=== PATIENT | female | born 1955 | race Caucasian/White ===

== ENCOUNTER → 2016-11-27 | Outpatient (CLI) | payer BC ==
--- NOTE | 2016-11-27 08:42 | US ---
EXAMINATION TYPE: US thyroid st tissue head/neck DATE OF EXAM: 11/27/2016 8:18 AM COMPARISON: NONE CLINICAL HISTORY: E11.65 Type II Diabetes. Hyperthyroidism, pt had neck radiated 2 years ago but no c ancer GLAND SIZE: Right Lobe: 4.1 x 1.4 x 1.0 cm Overall Parenchyma: heterogenous Left Lobe: 4.0 x 1.7 x 1.6 cm Overall Parenchyma: heterogeneous Isthmus Thickness: 0.5 cm NODULES RIGHT: # of nodules measured on right: 2 1. 1.2 X 1.0 x 0.8 cm isoechoic solid nodule at the lower pole with well-defined margins; . This n odule is wider than tall and shows intranodular vascularity. Prior size: no prior 2. 0.9 X 0.6 x 0.6 cm echogenic solid nodule at the mid pole with well-defined margins; . This nodu le is wider than tall and shows intranodular vascularity. Prior size: no prior LEFT: # of nodules measured on left: 2 1. 2.3 X 1.6 x 2.0 cm mixed nodule at the lower/mid pole with well-defined margins; . This nodule is wider than tall and shows intranodular vascularity. Prior size: no prior 2. 0.8 X 0.4 x 0.6 cm mixed nodule at the upper pole with well-defined margins; . This nodule is wi flori than tall and shows intranodular vascularity. Prior size: no prior ISTHMUS: # of nodules measured in the isthmus: 0 Bilateral neck scanned, no evidence of lymphadenopathy. Thyroid gland is normal in size, there are scattered nodules identified bilaterally. Most concerning is a 2.3 cm mixed cystic and solid nodule that is wider greater than tall with hyperechoic hypervascu lar solid component along the anterior superior aspect in the lower pole left thyroid lobe. IMPRESSION: Thyroid gland is normal in size and heterogeneous in appearance with scattered nodules including a do minant 2.3 cm mixed nodule mid to lower pole level left thyroid lobe.
[2016-11-27 09:10] LABS: ALT 43 U/L (9-52); AST 24 U/L (14-36); Alkaline Phosphatase 130 U/L (38-126); Anion Gap 10 mmol/L; Blood Urea Nitrogen 18 mg/dL (7-17); Calcium 9.2 mg/dL (8.4-10.2); Carbon Dioxide 28 mmol/L (22-30); Chloride 99 mmol/L (98-107); Cholesterol 222 mg/dL (<200); Glucose 359 mg/dL (74-99); HDL Cholesterol 44 mg/dL (40-60); Non-African American GFR(MDRD) >60 (>60 ml/min/1.73 sqM); Potassium 4.6 mmol/L (3.5-5.1); Sodium 137 mmol/L (137-145); Total Bilirubin 0.6 mg/dL (0.2-1.3); Total Protein 7.2 g/dL (6.3-8.2); Triglycerides 284 mg/dL (<150)
== END | disposition home or self-care (01) ==
LOC: RADUSWWP 07:59
PROVIDERS: ATTEND Internal Medicine Endocrinology, Diabetes & Metabolism
DX: E04.2 Nontoxic multinodular goiter (principal); E11.65 Type 2 diabetes mellitus with hyperglycemia; E89.0 Postprocedural hypothyroidism
CPT/HCPCS: 76536; 80053; 80061; 82043; 84443

== ENCOUNTER 2018-02-19 14:06 | Observation (INO) | payer BC ==
[2018-02-19] MEDS ORDERED: ASPIRIN 81 MG PO STA (14:35)
[2018-02-19] MEDS ORDERED: NITROGLYCERIN SL TABS 0.4 MG TAB SUBLINGUAL STA ×3 (14:35)
--- NOTE | 2018-02-19 14:39 | ED ---
General Adult HPI - General Chief complaint: Chest Pain Stated complaint: chest pain Time Seen by Provider: 02/19/18 14:25 Source: patient, RN notes reviewed Mode of arrival: ambulatory Limitations: no limitations - History of Present Illness Initial comments: Patient is a pleasant 62-year-old female presenting to the emergency Department with chest discomfort. Symptoms have been present for the past 2 days. Symptoms have been more persistent. Discomfort feels like pressure or burning without radiation. There is some associated dyspnea. Patient has been fatigued. Patient has been nauseated with some dry heaves. No diaphoresis. Discomfort is not necessarily exertional. Patient does have a history of similar symptoms previously associated with thyroid problems. Discomfort is currently 01/13. - Related Data Home Medications Medication Instructions Recorded Confirmed Citalopram Hydrobromide 20 mg PO QAM 03/12/15 02/19/18 [Citalopram HBr] Liraglutide [Victoza 3-Armando] 1.8 mg SQ QAM 03/12/15 02/19/18 Simvastatin 40 mg PO HS 03/12/15 02/19/18 Insulin Detemir [Levemir Flextouch] 50 units SQ QAM 05/23/16 02/19/18 Insulin Lispro [humaLOG Kwikpen] See Protocol SQ ACHS PRN 05/23/16 02/19/18 Levothyroxine Sodium [Synthroid] 125 mcg PO DAILY 05/23/16 02/19/18 Montelukast [Singulair] 10 mg PO HS 08/01/16 02/19/18 metFORMIN HCL [Glucophage] 1,000 mg PO BID 08/01/16 02/19/18 Levofloxacin [Levaquin] 500 mg PO DAILY 02/19/18 02/19/18 Trimethoprim [Trimpex] 100 mg PO HS 02/19/18 02/19/18 Allergies Allergy/AdvReac Type Severity Reaction Status Date / Time No Known Allergies Allergy Verified 02/19/18 14:51 Review of Systems ROS Statement: Those systems with pertinent positive or pertinent negative responses have been documented in the HPI. ROS Other: All systems not noted in ROS Statement are negative. Constitutional: Denies: fever Eyes: Denies: eye pain ENT: Denies: ear pain Respiratory: Reports: dyspnea. Denies: cough Cardiovascular: Reports: chest pain Endocrine: Reports: fatigue Gastrointestinal: Reports: nausea. Denies: abdominal pain Genitourinary: Denies: dysuria Musculoskeletal: Denies: back pain Skin: Denies: rash Neurological: Denies: weakness Past Medical History Past Medical History: Diabetes Mellitus, Hyperlipidemia, Thyroid Disorder Additional Past Medical History / Comment(s): SEASONAL ALLERGIES, LOW THYROID., HX OF CELLULITIS LEFT CALF. mitral valve prolapse History of Any Multi-Drug Resistant Organisms: MRSA Date of last positivie culture/infection: 08/06/2004 MDRO Source:: LEFT CALF Past Surgical History: Hysterectomy, Joint Replacement, Tonsillectomy Additional Past Surgical History / Comment(s): 2 EYE LID SURGERYS, RIGHT KNEE REPLACEMENT, MARIANA FROZEN SHOULDER MANIPULATION. Past Anesthesia/Blood Transfusion Reactions: No Reported Reaction Past Psychological History: Anxiety, Depression Smoking Status: Never smoker Past Alcohol Use History: Rare Past Drug Use History: None Reported - Past Family History Mother Family Medical History: Cancer Additional Family Medical History / Comment(s): LUNG CANCER General Exam Limitations: no limitations General appearance: alert, in no apparent distress Head exam: Present: atraumatic Eye exam: Present: normal appearance, PERRL ENT exam: Present: normal oropharynx Neck exam: Present: normal inspection Respiratory exam: Present: normal lung sounds bilaterally. Absent: chest wall tenderness Cardiovascular Exam: Present: regular rate, normal rhythm Expanded Peripheral pulses: 2+: Radial (R), Radial (L), Posterior Tibialis (R), Posterior Tibialis (L), Dorsalis Pedis (R), Dorsalis Pedis (L) GI/Abdominal exam: Present: soft. Absent: tenderness Extremities exam: Present: normal inspection. Absent: pedal edema, calf tenderness Neurological exam: Present: alert Psychiatric exam: Present: normal affect, normal mood Skin exam: Present: normal color Course Vital Signs 02/19/18 02/19/18 02/19/18 14:13 14:56 15:01 Temperature 97.8 F Pulse Rate 78 86 95 Respiratory 18 16 16 Rate Blood Pressure 128/81 171/84 144/83 O2 Sat by Pulse 97 95 96 Oximetry 02/19/18 02/19/18 02/19/18 15:05 15:09 15:38 Temperature Pulse Rate 97 94 86 Respiratory 16 16 17 Rate Blood Pressure 138/78 142/76 136/67 O2 Sat by Pulse 94 L 97 97 Oximetry EKG Findings - EKG Comments: EKG Findings:: Normal sinus rhythm 75. [place] 154. QRS 78. QT 402. QTC 440. Left axis. Low voltage. No acute ST change. Medical Decision Making - Medical Decision Making Patient reevaluated and resting comfortably in bed. Patient did improve with nitroglycerin however states her symptoms are starting to return. Patient and family updated on results and plan. Case discussed in detail with Dr. Green, who will admit his patient - Lab Data Result diagrams: 02/19/18 14:42 02/19/18 14:42 Lab Results 02/19/18 02/19/18 02/19/18 Range/Units 14:42 14:42 14:42 WBC 7.3 (3.8-10.6) k/uL RBC 5.15 (3.80-5.40) m/uL Hgb 14.2 (11.4-16.0) gm/dL Hct 43.4 (34.0-46.0) % MCV 84.3 (80.0-100.0) fL MCH 27.6 (25.0-35.0) pg MCHC 32.7 (31.0-37.0) g/dL RDW 13.9 (11.5-15.5) % Plt Count 230 (150-450) k/uL Neutrophils % 74 % Lymphocytes % 18 % Monocytes % 6 % Eosinophils % 1 % Basophils % 0 % Neutrophils # 5.4 (1.3-7.7) k/uL Lymphocytes # 1.3 (1.0-4.8) k/uL Monocytes # 0.4 (0-1.0) k/uL Eosinophils # 0.1 (0-0.7) k/uL Basophils # 0.0 (0-0.2) k/uL PT (9.0-12.0) sec INR (<1.2) APTT (22.0-30.0) sec Sodium 138 (137-145) mmol/L Potassium 4.3 (3.5-5.1) mmol/L Chloride 104 (98-107) mmol/L Carbon Dioxide 26 (22-30) mmol/L Anion Gap 8 mmol/L BUN 10 (7-17) mg/dL Creatinine 0.70 (0.52-1.04) mg/dL Est GFR (CKD-EPI)AfAm >90 (>60 ml/min/1.73 sqM) Est GFR (CKD-EPI)NonAf >90 (>60 ml/min/1.73 sqM) Glucose 135 H (74-99) mg/dL Calcium 9.1 (8.4-10.2) mg/dL Magnesium 1.9 (1.6-2.3) mg/dL Total Bilirubin 0.6 (0.2-1.3) mg/dL AST 27 (14-36) U/L ALT 40 (9-52) U/L Alkaline Phosphatase 87 (38-126) U/L Total Creatine Kinase 51 (30-135) U/L CK-MB (CK-2) 0.6 (0.0-2.4) ng/mL CK-MB (CK-2) Rel Index 1.2 Troponin I <0.012 (0.000-0.034) ng/mL Total Protein 6.6 (6.3-8.2) g/dL Albumin 3.9 (3.5-5.0) g/dL TSH 1.780 (0.465-4.680) mIU/L Free T4 1.13 (0.78-2.19) ng/dL Free T3 pg/mL 2.6 L (2.8-5.3) pg/ml 02/19/18 Range/Units 14:42 WBC (3.8-10.6) k/uL RBC (3.80-5.40) m/uL Hgb (11.4-16.0) gm/dL Hct (34.0-46.0) % MCV (80.0-100.0) fL MCH (25.0-35.0) pg MCHC (31.0-37.0) g/dL RDW (11.5-15.5) % Plt Count (150-450) k/uL Neutrophils % % Lymphocytes % % Monocytes % % Eosinophils % % Basophils % % Neutrophils # (1.3-7.7) k/uL Lymphocytes # (1.0-4.8) k/uL Monocytes # (0-1.0) k/uL Eosinophils # (0-0.7) k/uL Basophils # (0-0.2) k/uL PT 10.0 (9.0-12.0) sec INR 1.0 (<1.2) APTT 24.4 (22.0-30.0) sec Sodium (137-145) mmol/L Potassium (3.5-5.1) mmol/L Chloride (98-107) mmol/L Carbon Dioxide (22-30) mmol/L Anion Gap mmol/L BUN (7-17) mg/dL Creatinine (0.52-1.04) mg/dL Est GFR (CKD-EPI)AfAm (>60 ml/min/1.73 sqM) Est GFR (CKD-EPI)NonAf (>60 ml/min/1.73 sqM) Glucose (74-99) mg/dL Calcium (8.4-10.2) mg/dL Magnesium (1.6-2.3) mg/dL Total Bilirubin (0.2-1.3) mg/dL AST (14-36) U/L ALT (9-52) U/L Alkaline Phosphatase (38-126) U/L Total Creatine Kinase (30-135) U/L CK-MB (CK-2) (0.0-2.4) ng/mL CK-MB (CK-2) Rel Index Troponin I (0.000-0.034) ng/mL Total Protein (6.3-8.2) g/dL Albumin (3.5-5.0) g/dL TSH (0.465-4.680) mIU/L Free T4 (0.78-2.19) ng/dL Free T3 pg/mL (2.8-5.3) pg/ml - Radiology Data Radiology results: image reviewed (Chest x-ray shows no acute process) Disposition Clinical Impression: Chest pain Disposition: ADMITTED IP TO THIS HOSP Is patient prescribed a controlled substance at d/c from ED?: No Referrals: Shamir Green DO [Primary Care Provider] - 1-2 days Decision Time: 16:25
[2018-02-19 15:01] LABS: Basophils % (A) 0 %; Eosinophils # (A) 0.1 k/uL (0-0.7); Eosinophils % (A) 1 %; HCT 43.4 % (34.0-46.0); HGB 14.2 gm/dL (11.4-16.0); Lymphocytes # (A) 1.3 k/uL (1.0-4.8); Lymphocytes % (A) 18 %; MCH 27.6 pg (25.0-35.0); MCHC 32.7 g/dL (31.0-37.0); MCV 84.3 fL (80.0-100.0); Mean Platelet Volume 6.9; Monocytes # (A) 0.4 k/uL (0-1.0); Monocytes % (A) 6 %; Neutrophils # (A) 5.4 k/uL (1.3-7.7); Neutrophils % (A) 74 %; Platelet Count 230 k/uL (150-450); RBC 5.15 m/uL (3.80-5.40); RDW 13.9 % (11.5-15.5); WBC 7.3 k/uL (3.8-10.6)
[2018-02-19 15:13] LABS: ALT 40 U/L (9-52); AST 27 U/L (14-36); Albumin 3.9 g/dL (3.5-5.0); Alkaline Phosphatase 87 U/L (38-126); Anion Gap 8 mmol/L; Blood Urea Nitrogen 10 mg/dL (7-17); Calcium 9.1 mg/dL (8.4-10.2); Carbon Dioxide 26 mmol/L (22-30); Chloride 104 mmol/L (98-107); Glucose 135 mg/dL (74-99); Magnesium 1.9 mg/dL (1.6-2.3); Potassium 4.3 mmol/L (3.5-5.1); Sodium 138 mmol/L (137-145); Total Bilirubin 0.6 mg/dL (0.2-1.3); Total Protein 6.6 g/dL (6.3-8.2)
--- NOTE | 2018-02-19 15:25 | XR ---
EXAMINATION TYPE: XR chest 2V DATE OF EXAM: 02/19/2018 COMPARISON: CXR from 08/01/2016. HISTORY: Chest pain for 2 days. SOB. TECHNIQUE: Frontal and lateral views of the chest are obtained. FINDINGS: There is no focal air space opacity, pleural effusion, or pneumothorax seen. The cardiac silhouette size is stable and mildly enlarged. The osseous structures are intact. IMPRESSION: Cardiomegaly without acute pulmonary process.
[2018-02-19 15:28] LABS: Creatine Kinase 51 U/L (30-135)
[2018-02-19 15:29] LABS: T4, Free (Free Thyroxine) 1.13 ng/dL (0.78-2.19)
[2018-02-19 15:40] LABS: Creatine Kinase MB 0.6 ng/mL (0.0-2.4); Troponin I <0.012 ng/mL (0.000-0.034)
[2018-02-19 15:46] LABS: Partial Thromboplastin Time 24.4 sec (22.0-30.0)
[2018-02-19] MEDS ORDERED: NITROGLYCERIN SL TABS 0.4 MG TAB SUBLINGUAL PRN (16:25)
[2018-02-19 19:06] VITALS: RESP 16
[2018-02-19 20:34] LABS: Glucose,Whole Blood 145 mg/dL (75-99)
[2018-02-19] MEDS ORDERED: TRIMETHOPRIM 100 MG TAB PO SCH (21:15)
[2018-02-19] MEDS ORDERED: INSULIN DETEMIR 100 UNIT/ML 10 ML VIAL SQ SCH (21:15)
[2018-02-19] MEDS ORDERED: ATORVASTATIN 20 MG TAB PO SCH (21:15)
[2018-02-19 21:44] LABS: Creatine Kinase 46 U/L (30-135)
[2018-02-19 21:53] LABS: Creatine Kinase MB 0.4 ng/mL (0.0-2.4); Troponin I <0.012 ng/mL (0.000-0.034)
[2018-02-19] MEDS: NITROGLYCERIN OINT 1 INCH/GM PACKET TOPICAL SCH ×2 (22:03→22:10)
[2018-02-19] MEDS: MONTELUKAST 10 MG TAB PO SCH (22:06)
[2018-02-20 04:10] LABS: Cholesterol 191 mg/dL (<200); HDL Cholesterol 33 mg/dL (40-60); LDL Cholesterol,Calculated 122 mg/dL (0-99); Triglycerides 181 mg/dL (<150)
[2018-02-20] MEDS: MONTELUKAST 10 MG TAB PO SCH (04:52)
[2018-02-20] MEDS: NITROGLYCERIN OINT 1 INCH/GM PACKET TOPICAL SCH ×2 (04:53→06:24)
[2018-02-20 05:55] LABS: Creatine Kinase 47 U/L (30-135); Creatine Kinase MB 0.4 ng/mL (0.0-2.4); Troponin I <0.012 ng/mL (0.000-0.034)
[2018-02-20] MEDS ORDERED: LEVOTHYROXINE 125 MCG TAB PO SCH (06:30)
[2018-02-20 06:55] LABS: Glucose,Whole Blood 148 mg/dL (75-99)
[2018-02-20] MEDS ORDERED: metFORMIN 500 MG TAB PO SCH (07:30)
[2018-02-20] MEDS ORDERED: DOBUTamine DRIP for NUC MED 500 MG in DEXTROSE/WATER 1 250ML.BAG IV ONE (07:58)
--- NOTE | 2018-02-20 08:48 | CONS ---
CONSULTATION A 62-year-old female patient of Dr. Green who presented with midsternal chest discomfort recurrent. No radiation. No associated symptoms. No dizziness or lightheadedness. REVIEW OF SYSTEMS: No fever, chills, or rigors. No cough or expectoration. No nausea, vomiting, or diarrhea. No hematuria or dysuria. No strokes or seizures. No skin lesions. No musculoskeletal complaints. Her main complaint is that she feels like a pressure or knot not in the mid chest. PAST HISTORY: Past history of diabetes, hypothyroidism. Denies hypertension. PAST SURGICAL HISTORY: Hysterectomy, joint replacement, tonsillectomy, and eyelid surgery. History of cellulitis. ALLERGIES: No known drug allergies. MEDICATIONS: Medications include trimethoprim, Levaquin, Glucophage, Singulair, Synthroid, insulin, simvastatin, Victoza, and citalopram. PHYSICAL EXAMINATION: On examination initially her blood pressure was 144/83 mmHg, 171/84 and 128/81 mmHg. Head and neck examination is normal. Heart sounds are normal. Lungs are clear to auscultation. Extremities are warm, no edema. The 12-lead ECG shows sinus rhythm with normal cardiac intervals, normal ST segments. Labs are reviewed. Hemoglobin is normal. Electrolytes are normal. Kidney functions normal. Cardiac enzymes x3 are normal. D-dimer is pending and has been added on/ about it. She is obese. Heart sounds S1, S2 are normal. No murmurs or gallops or rub. Breath sounds are clear. No rhonchi, no crackles. Abdomen is soft, nontender. Extremities are warm, no edema. IMPRESSION: 1. Atypical recurrent chest discomfort with normal cardiac enzymes and underlying type 2 diabetes on insulin. She has been diabetic for 10 years. 2. Mildly elevated blood pressure intermittently. SUGGEST: 1. A lipid panel. 2. Start losartan 25 mg p.o. daily. 3. Discontinue nitro paste. 4. Switch to baby aspirin. 5. D-dimer. If the D-dimer is normal only then will be proceed with a dobutamine stress echo with contrast. This was discussed with the nurse. The lab will be called by the nurse to add on the D-dimer to the a.m. sample. MMODL / IJN: [id number] /
[2018-02-20] MEDS ORDERED: ASPIRIN 81 MG PO SCH (09:00)
[2018-02-20] MEDS ORDERED: NON-FORMULARY DRUG (Liraglutide [Victoza 3-Pak] 1.8 MG) SQ SCH (09:00)
[2018-02-20] MEDS ORDERED: LEVOFLOXACIN 500 MG TAB PO SCH (09:00)
[2018-02-20] MEDS ORDERED: ASPIRIN 325 MG TAB PO SCH (09:00)
[2018-02-20] MEDS ORDERED: INSULIN DETEMIR 100 UNIT/ML 10 ML VIAL SQ SCH (09:00)
[2018-02-20] MEDS ORDERED: CITALOPRAM HYDROBROMIDE 20 MG TAB PO SCH (09:30)
--- NOTE | 2018-02-20 10:14 | P.HPIM ---
History of Present Illness H&P Date: 02/20/18 Chief Complaint: Chest pain THIS DOCUMENT SERVES H&P AND ALSO DISCHARGE SUMMARY 62-year-old female who presented to the emergency room with a chief complaint of chest pain. Patient states she started experiencing midsternal chest pain. The patient denied any radiation to back, jaw, or arm. She denies lightheadedness or dizziness. Denies nausea or vomiting. She denies shortness of breath. The patient has a history of diabetes mellitus, hyperlipidemia, hypothyroidism, anxiety, and depression. She states she was recently diagnosed with a urinary tract infection and is currently completing a regimen of Levaquin. She is obese with a BMI of 41.3. Chest x-ray was completed revealing cardio megaly without an acute pulmonary process. Laboratory data reveals white count of 7.3, hemoglobin 14.2, platelet count 2:30. Sodium 138. Potassium 4.3. BUN 10. Creatinine 0.70. Glucose 135. TSH 1.17. Free T4 1.13. D-dimer was also completed this morning which was 0.34. The patient was admitted to the observation unit under the care of Dr. Green. Consultations were placed to cardiology. Case was discussed with Dr. Arthur who recommends stress testing. Review of Systems Those systems with pertinent positive or pertinent negative responses have been documented in the HPI Past Medical History Past Medical History: Diabetes Mellitus, Hyperlipidemia, Thyroid Disorder Additional Past Medical History / Comment(s): hx SEASONAL ALLERGIES/chronci sinusitis/deviated septum(sx), LOW THYROID., HX OF CELLULITIS LEFT CALF(mrsa 2004). mitral valve prolapse . upper dental bridge, past kidney stone, "occ heartburn". had a pne vaccine less than 5 years ago not sure of date,movie writer unable to verify date at time of this admit. History of Any Multi-Drug Resistant Organisms: MRSA Date of last positivie culture/infection: 08/06/2004 MDRO Source:: LEFT CALF Past Surgical History: Hysterectomy, Joint Replacement, Tonsillectomy Additional Past Surgical History / Comment(s): 2 EYE LID SURGERYS, RIGHT KNEE REPLACEMENT, MARIANA FROZEN SHOULDER MANIPULATION.colonoscopy-normal, 2015 septoplsty Past Anesthesia/Blood Transfusion Reactions: No Reported Reaction Smoking Status: Never smoker - Past Family History Mother Family Medical History: Cancer Additional Family Medical History / Comment(s): LUNG CANCER Father History Unknown: Yes Additional Family Medical History / Comment(s): from wounds sustained in house fire Medications and Allergies Home Medications Medication Instructions Recorded Confirmed Type Citalopram Hydrobromide 20 mg PO QAM 03/12/15 02/19/18 History [Citalopram HBr] Liraglutide [Victoza 3-Armando] 1.8 mg SQ QAM 03/12/15 02/19/18 History Simvastatin 40 mg PO HS 03/12/15 02/19/18 History Insulin Detemir [Levemir Flextouch] 50 units SQ QAM 05/23/16 02/19/18 History Insulin Lispro [humaLOG Kwikpen] See Protocol SQ ACHS PRN 05/23/16 02/19/18 History Levothyroxine Sodium [Synthroid] 125 mcg PO DAILY 05/23/16 02/19/18 History Montelukast [Singulair] 10 mg PO HS 08/01/16 02/19/18 History metFORMIN HCL [Glucophage] 1,000 mg PO BID 08/01/16 02/19/18 History Levofloxacin [Levaquin] 500 mg PO DAILY 02/19/18 02/19/18 History Trimethoprim [Trimpex] 100 mg PO HS 02/19/18 02/19/18 History Allergies Allergy/AdvReac Type Severity Reaction Status Date / Time No Known Allergies Allergy Verified 02/20/18 05:14 Physical Exam Vitals: Vital Signs Temp Pulse Pulse Resp BP BP Pulse Ox 02/20/18 08:00 98.3 F 89 16 131/81 97 02/20/18 04:00 97.9 F 80 16 122/67 96 02/20/18 00:00 76 16 02/19/18 22:51 97.9 F 68 16 135/80 96 02/19/18 20:00 84 16 02/19/18 19:52 97.8 F 78 16 135/78 95 02/19/18 19:05 74 16 163/75 98 02/19/18 16:59 78 18 149/79 98 02/19/18 16:25 83 98 H 162/77 98 02/19/18 15:38 86 17 136/67 97 02/19/18 15:09 94 16 142/76 97 02/19/18 15:05 97 16 138/78 94 L 02/19/18 15:01 95 16 144/83 96 02/19/18 14:56 86 16 171/84 95 02/19/18 14:13 97.8 F 78 18 128/81 97 Intake and Output 02/19/18 02/20/18 02/20/18 22:59 06:59 14:59 Intake Total 300 Balance 300 Intake: Oral 300 Other: Voiding Method Toilet Toilet # Voids 2 1 GENERAL: This is a 62-year-old female in no apparent distress at the time of examination. Pleasant and cooperative. HEENT: Head is atraumatic, normocephalic. Pupils are equal, round, and reactive to light. Sclerae anicteric. Conjunctivae are clear. Mucus membranes of the mouth are moist. Neck is supple. RESPIRATORY: Clear to ausculation. No wheezes, rales, or rhonchi. No use of accessory muscles. Patient maintaining oxygen saturation greater than 92%. No chest wall tenderness is noted on palpation or with deep breathing. CARDIOVASCULAR: Regular rate and rhythm. S1 and S2 noted. No systolic or diastolic murmur auscultated. No JVD noted. No S3 or S4 noted. GASTROINTESTINAL: No distention noted. Abdomen soft and round. Normal active bowel sounds auscultated x 4 quadrants. No pain or tenderness noted upon palpation. INTEGUMENTARY: No cyanosis. No jaundice. No rashes noted. No cellulitis noted. EXTREMITIES: 2+ peripheral pulses. No evidence of peripheral edema. No calf tenderness noted. NEUROLOGIC: Cranial nerves II-XII intact. PSYCHIATRIC: Awake, alert, and oriented X 3. Appropriate affect. Intact judgement and insight. Results CBC & Chem 7: 02/19/18 14:42 02/19/18 14:42 Labs: Abnormal Lab Results - Last 24 Hours (Table) 02/19/18 02/19/18 02/20/18 Range/Units 14:42 20:22 02:41 Glucose 135 H (74-99) mg/dL POC Glucose (mg/dL) 145 H (75-99) mg/dL Triglycerides 181 H (<150) mg/dL LDL Cholesterol, Calc 122 H (0-99) mg/dL HDL Cholesterol 33 L (40-60) mg/dL Free T3 pg/mL 2.6 L (2.8-5.3) pg/ml 02/20/18 Range/Units 06:53 Glucose (74-99) mg/dL POC Glucose (mg/dL) 148 H (75-99) mg/dL Triglycerides (<150) mg/dL LDL Cholesterol, Calc (0-99) mg/dL HDL Cholesterol (40-60) mg/dL Free T3 pg/mL (2.8-5.3) pg/ml Thrombosis Risk Factor Assmnt - Choose All That Apply Any of the Below Risk Factors Present?: No Each Risk Factor Represents 2 Points: Age 61-74 years Other congenital or acquired thrombophilia - If yes, enter type in comment: No Thrombosis Risk Factor Assessment Total Risk Factor Score: 2 Thrombosis Risk Factor Assessment Level: Low Risk Assessment and Plan Plan: ASSESSMENT: Midsternal/epigastric chest pain, troponins negative 3, acute coronary syndrome ruled out Diabetes mellitus, type II Recent outpatient diagnosis of urinary tract infection, currently completing course of Levaquin Hyperlipidemia Hypothyroidism Depression Generalized anxiety disorder Morbid obesity: BMI 41.3 PLAN: Cardiology on consult and evaluated patient. Patient went for stress test today which was negative. The patient was cleared for discharge from a cardiac standpoint. The patient can be discharged home today and follow up outpatient with Dr. Green for further workup. Nurse practitioner note has been reviewed by physician. Signing provider agrees with the documented findings, assessment, and plan of care.
[2018-02-20] MEDS ORDERED: FAMOTIDINE 20 MG TAB PO SCH (10:15)
--- NOTE | 2018-02-20 12:02 | P.STRESS ---
- Stress Test Note Stress Test Results/Findings: Exam Performed: Exam Date: Reason for Exam: Height: 5 ft 3 in Weight: 105.868 kg Protocol: Stage: Duration of Exercise: Resting Heart Rate: Resting Blood Pressure: Maximum Achieved Heart Rate: Maximum Achieved Blood Pressure: 85% PMHR: 100% PMHR: METS: Technologist Comment: Stress Test Results/Findings: Baseline heart rate 84 beats a minute Baseline blood pressure 142/82 mmHg Twelve-lead ECG shows normal sinus rhythm and normal cardiac intervals 2-D echo images were suboptimal and therefore echo contrast was used Patient received dobutamine infusion per protocol. There was a stepwise increment in a heart rate. I'll a hypertensive response to be between infusion. Blood pressure 212/55 mmHg There is no ECG evidence for ischemia. No arrhythmias are noted With dobutamine infusion there is a stepwise augmentation of overall LV contractility him a without development of any wall motion abnormalities. At recovery, regional and global LV systolic function remained normal Impression No ECG or echocardiographic evidence for ischemia during dobutamine stress echo
[2018-02-20 12:12] LABS: Hemoglobin A1C 7.3 % (4.0-6.0)
[2018-02-20 12:34] LABS: Glucose,Whole Blood 162 mg/dL (75-99)
[2018-02-20] MEDS: INSULIN ASPART 100 UNIT/ML 1 ML 10 ML VIAL SQ SCH ×2 (12:53)
[2018-02-20 13:25] VITALS: BP 149/81; PULSE 82; TEMP 98.2
[2018-02-20] MEDS ORDERED: HEPARIN SODIUM,PORCINE 5,000 UNIT/ML 1 ML VIAL SQ SCH (21:00)
--- NOTE | 2018-02-25 15:31 | ECHOS ---
Stress Test Results/Findings: Exam Performed: Dobutamine Stress Echo Exam Date: 02/20/18 Reason for Exam: CP Height: 5 ft 3 in Weight: 105.868 kg Protocol: DSI Stage: 2 Duration of Exercise: 5:00 Resting Heart Rate: 84 Resting Blood Pressure: 142/82 Maximum Achieved Heart Rate: 140 Maximum Achieved Blood Pressure: 212/55 85% PMHR: 134 100% PMHR: 158 METS: Technologist Comment: Stress Test Results/Findings: Baseline heart rate 84 beats a minute Baseline blood pressure 142/82 mmHg Twelve-lead ECG shows normal sinus rhythm and normal cardiac intervals 2-D echo images were suboptimal and therefore echo contrast was used Patient received dobutamine infusion per protocol. There was a stepwise increment in a heart rate. I'll a hypertensive response to be between infusion. Blood pressure 212/55 mmHg There is no ECG evidence for ischemia. No arrhythmias are noted With dobutamine infusion there is a stepwise augmentation of overall LV contractility him a without development of any wall motion abnormalities. At recovery, regional and global LV systolic function remained normal Impression No ECG or echocardiographic evidence for ischemia during dobutamine stress echo Additional CC's: Shamir GROSS
== END 2018-02-20 15:16 | disposition home or self-care (01) ==
LOC: EC 14:06 → 3OBS 16:26
PROVIDERS: ADMIT Family Medicine; ATTEND Family Medicine
DX: R07.89 Other chest pain (principal); E11.9 Type 2 diabetes mellitus without complications; R03.0 Elevated blood-pressure reading, without diagnosis of hypertension; N39.0 Urinary tract infection, site not specified; E03.9 Hypothyroidism, unspecified; E78.5 Hyperlipidemia, unspecified; Z68.41 Body mass index [BMI] 40.0-44.9, adult; E66.01 Morbid (severe) obesity due to excess calories; F32.9 Major depressive disorder, single episode, unspecified; F41.1 Generalized anxiety disorder; J32.9 Chronic sinusitis, unspecified; J30.2 Other seasonal allergic rhinitis; I34.1 Nonrheumatic mitral (valve) prolapse; Z79.4 Long term (current) use of insulin; Z79.2 Long term (current) use of antibiotics; Z79.890 Hormone replacement therapy; Z79.899 Other long term (current) drug therapy; Z86.14 Personal history of Methicillin resistant Staphylococcus aureus infection; Z87.442 Personal history of urinary calculi; Z90.710 Acquired absence of both cervix and uterus; Z96.651 Presence of right artificial knee joint; Z80.1 Family history of malignant neoplasm of trachea, bronchus and lung; Z84.89 Family history of other specified conditions
CPT/HCPCS: 99285 ×2; 36415; 93005; 93351; 85379; 84439; 84481; 80061; 80053; 82550 ×2; 82553 ×2; 83735; 84443; 84484 ×2; 85025; 85610; 85730; 83036; 71046; G0378 ×2; J1250; Q9950

== ENCOUNTER 2020-01-26 12:37 | Emergency (ER) | payer BC ==
[2020-01-26 12:42] VITALS: RESP 18; TEMP 97.9
[2020-01-26] MEDS ORDERED: SODIUM CHLORIDE 0.9% 500 ML 500 ML IV STA (12:55)
[2020-01-26] MEDS ORDERED: SODIUM CHLORIDE 0.9% 1,000 ML IV STA (12:55)
[2020-01-26] MEDS ORDERED: METOCLOPRAMIDE 5 MG/ML 2 ML VIAL IVP STA (12:56)
--- NOTE | 2020-01-26 12:59 | ED ---
General Adult HPI - General Chief complaint: Weakness Stated complaint: Fatigue Time Seen by Provider: 01/26/20 12:45 Source: patient, family, RN notes reviewed Mode of arrival: ambulatory Limitations: no limitations - History of Present Illness Initial comments: Patient is a pleasant 64-year-old female presenting to the emergency Department with complaints of fatigue. Patient has had now 3 episodes over the past several months. This current episode is lasted 4-5 days. Patient has been sleeping a lot. Some decreased appetite. Patient feels a little bit dizzy at times. Patient did see her doctor last week and gave a Z-Armando which did have some improvement however once she stopped taking it symptoms return. No urinary symptoms. No confusion or isolated area of weakness. - Related Data Home Medications Medication Instructions Recorded Confirmed Citalopram Hydrobromide 20 mg PO QAM 03/12/15 02/19/18 [Citalopram HBr] Liraglutide [Victoza 3-Armando] 1.8 mg SQ QAM 03/12/15 02/19/18 Simvastatin 40 mg PO HS 03/12/15 02/19/18 Insulin Detemir [Levemir Flextouch] 50 units SQ QAM 05/23/16 02/19/18 Insulin Lispro [humaLOG Kwikpen] See Protocol SQ ACHS PRN 05/23/16 02/19/18 Levothyroxine Sodium [Synthroid] 125 mcg PO DAILY 05/23/16 02/19/18 Montelukast [Singulair] 10 mg PO HS 08/01/16 02/19/18 metFORMIN HCL [Glucophage] 1,000 mg PO BID 08/01/16 02/19/18 Levofloxacin [Levaquin] 500 mg PO DAILY 02/19/18 02/19/18 Trimethoprim [Trimpex] 100 mg PO HS 02/19/18 02/19/18 Previous Rx's Medication Instructions Recorded Aspirin 81 mg PO DAILY #30 chew 02/20/18 Losartan [Cozaar] 25 mg PO DAILY #3 tab 02/20/18 Nitrofurantoin Monohyd/M-Cryst 100 mg PO Q12HR #20 cap 01/26/20 [Macrobid] Allergies Allergy/AdvReac Type Severity Reaction Status Date / Time No Known Allergies Allergy Verified 01/26/20 12:42 Review of Systems ROS Statement: Those systems with pertinent positive or pertinent negative responses have been documented in the HPI. ROS Other: All systems not noted in ROS Statement are negative. Constitutional: Denies: fever, chills Eyes: Denies: eye pain ENT: Denies: ear pain Respiratory: Denies: cough, dyspnea Cardiovascular: Denies: chest pain Endocrine: Reports: fatigue Gastrointestinal: Reports: nausea (Mild nausea at times). Denies: abdominal pain, vomiting Genitourinary: Denies: dysuria Musculoskeletal: Denies: back pain Skin: Denies: rash Neurological: Denies: headache, weakness, confusion Past Medical History Past Medical History: Diabetes Mellitus, Hyperlipidemia, Thyroid Disorder Additional Past Medical History / Comment(s): hx SEASONAL ALLERGIES/chronci sinusitis/deviated septum(sx), LOW THYROID., HX OF CELLULITIS LEFT CALF(mrsa 2004). mitral valve prolapse . upper dental bridge, past kidney stone, "occ heartburn". had a pne vaccine less than 5 years ago not sure of date,life underwriter unable to verify date at time of this admit. History of Any Multi-Drug Resistant Organisms: MRSA Date of last positivie culture/infection: 08/06/2004 MDRO Source:: LEFT CALF Past Surgical History: Hysterectomy, Joint Replacement, Tonsillectomy Additional Past Surgical History / Comment(s): 2 EYE LID SURGERYS, RIGHT KNEE REPLACEMENT, MARIANA FROZEN SHOULDER MANIPULATION.colonoscopy-normal, 2014 septoplsty Past Anesthesia/Blood Transfusion Reactions: No Reported Reaction Past Psychological History: Anxiety, Depression Smoking Status: Never smoker Past Alcohol Use History: None Reported Past Drug Use History: None Reported - Past Family History Mother Family Medical History: Cancer Additional Family Medical History / Comment(s): LUNG CANCER Father History Unknown: Yes Additional Family Medical History / Comment(s): from wounds sustained in house fire General Exam Limitations: no limitations General appearance: alert, in no apparent distress Head exam: Present: atraumatic, normocephalic Eye exam: Present: normal appearance, EOMI ENT exam: Present: normal oropharynx Neck exam: Present: normal inspection. Absent: tenderness, meningismus Respiratory exam: Present: normal lung sounds bilaterally Cardiovascular Exam: Present: regular rate, normal rhythm GI/Abdominal exam: Present: soft. Absent: tenderness Extremities exam: Present: normal inspection Neurological exam: Present: alert, CN II-XII intact. Absent: motor sensory deficit Expanded Neurological exam: Present: protecting the airway Speech: Present: fluid speech Cranial nerves: EOM's Intact: Normal Motor strength exam: RUE: 5, LUE: 5, RLE: 5, LLE: 5 Eye Response: (4) open spontaneously Motor Response: (6) obeys commands Verbal Response: (5) oriented Psychiatric exam: Present: normal affect, normal mood Skin exam: Present: normal color Course Vital Signs 01/26/20 01/26/20 01/26/20 12:38 13:20 14:42 Temperature 97.9 F Pulse Rate 91 80 75 Respiratory 18 18 18 Rate Blood Pressure 179/96 151/79 143/70 O2 Sat by Pulse 97 97 94 L Oximetry EKG Findings - EKG Comments: EKG Findings:: Normal sinus rhythm 84. AZ 150. QRS 78. QT 388. QTC 458. Left axis. Low QRS voltage. No acute ST change. Medical Decision Making - Medical Decision Making Patient reevaluated and resting comfortably in bed. Patient offered admission however does feel comfortable with discharge home. Case was also discussed with Dr. Green was familiar with this patient and will follow-up with patient this week in the office. Patient and family updated. - Lab Data Result diagrams: 01/26/20 13:19 01/26/20 13:19 Lab Results 01/26/20 01/26/20 01/26/20 Range/Units 13:19 13:19 13:19 WBC 6.9 (3.8-10.6) k/uL RBC 5.25 (3.80-5.40) m/uL Hgb 14.6 (11.4-16.0) gm/dL Hct 45.7 (34.0-46.0) % MCV 87.1 (80.0-100.0) fL MCH 27.8 (25.0-35.0) pg MCHC 31.9 (31.0-37.0) g/dL RDW 13.9 (11.5-15.5) % Plt Count 231 (150-450) k/uL Neutrophils % 70 % Lymphocytes % 22 % Monocytes % 5 % Eosinophils % 2 % Basophils % 1 % Neutrophils # 4.8 (1.3-7.7) k/uL Lymphocytes # 1.5 (1.0-4.8) k/uL Monocytes # 0.4 (0-1.0) k/uL Eosinophils # 0.1 (0-0.7) k/uL Basophils # 0.1 (0-0.2) k/uL PT 10.0 (9.0-12.0) sec INR 1.0 (<1.2) APTT 25.5 (22.0-30.0) sec Sodium (137-145) mmol/L Potassium (3.5-5.1) mmol/L Chloride (98-107) mmol/L Carbon Dioxide (22-30) mmol/L Anion Gap mmol/L BUN (7-17) mg/dL Creatinine (0.52-1.04) mg/dL Est GFR (CKD-EPI)AfAm (>60 ml/min/1.73 sqM) Est GFR (CKD-EPI)NonAf (>60 ml/min/1.73 sqM) Glucose (74-99) mg/dL Plasma Lactic Acid Levon (0.7-2.0) mmol/L Calcium (8.4-10.2) mg/dL Phosphorus (2.5-4.5) mg/dL Magnesium (1.6-2.3) mg/dL Total Bilirubin (0.2-1.3) mg/dL AST (14-36) U/L ALT (4-34) U/L Alkaline Phosphatase (38-126) U/L Creatine Kinase (30-135) U/L Troponin I (0.000-0.034) ng/mL Total Protein (6.3-8.2) g/dL Albumin (3.5-5.0) g/dL TSH (0.465-4.680) mIU/L Free T4 (0.78-2.19) ng/dL Free T3 pg/mL (2.8-5.3) pg/ml Urine Color Tiesha Urine Appearance Clear (Clear) Urine pH 7.0 (5.0-8.0) Ur Specific [place] 1.010 (1.001-1.035) Urine Protein 1+ H (Negative) Urine Glucose (UA) Negative (Negative) Urine Ketones 1+ H (Negative) Urine Blood Negative (Negative) Urine Nitrite Positive H (Negative) Urine Bilirubin Negative (Negative) Urine Urobilinogen <2.0 (<2.0) mg/dL Ur Leukocyte Esterase Large (Negative) Urine RBC 4 (0-5) /hpf Urine WBC 57 H (0-5) /hpf Urine WBC Clumps Rare H (None) /hpf Ur Squamous Epith Cells 4 (0-4) /hpf Amorphous Sediment Rare H (None) /hpf Urine Bacteria Moderate H (None) /hpf Urine Mucus Few H (None) /hpf 01/26/20 01/26/20 01/26/20 Range/Units 13:19 13:19 13:19 WBC (3.8-10.6) k/uL RBC (3.80-5.40) m/uL Hgb (11.4-16.0) gm/dL Hct (34.0-46.0) % MCV (80.0-100.0) fL MCH (25.0-35.0) pg MCHC (31.0-37.0) g/dL RDW (11.5-15.5) % Plt Count (150-450) k/uL Neutrophils % % Lymphocytes % % Monocytes % % Eosinophils % % Basophils % % Neutrophils # (1.3-7.7) k/uL Lymphocytes # (1.0-4.8) k/uL Monocytes # (0-1.0) k/uL Eosinophils # (0-0.7) k/uL Basophils # (0-0.2) k/uL PT (9.0-12.0) sec INR (<1.2) APTT (22.0-30.0) sec Sodium 138 (137-145) mmol/L Potassium 4.4 (3.5-5.1) mmol/L Chloride 105 (98-107) mmol/L Carbon Dioxide 23 (22-30) mmol/L Anion Gap 10 mmol/L BUN 13 (7-17) mg/dL Creatinine 0.63 (0.52-1.04) mg/dL Est GFR (CKD-EPI)AfAm >90 (>60 ml/min/1.73 sqM) Est GFR (CKD-EPI)NonAf >90 (>60 ml/min/1.73 sqM) Glucose 136 H (74-99) mg/dL Plasma Lactic Acid Levon 1.2 (0.7-2.0) mmol/L Calcium 8.9 (8.4-10.2) mg/dL Phosphorus 2.9 (2.5-4.5) mg/dL Magnesium 2.0 (1.6-2.3) mg/dL Total Bilirubin 0.6 (0.2-1.3) mg/dL AST 31 (14-36) U/L ALT 21 (4-34) U/L Alkaline Phosphatase 88 (38-126) U/L Creatine Kinase 95 (30-135) U/L Troponin I <0.012 (0.000-0.034) ng/mL Total Protein 7.1 (6.3-8.2) g/dL Albumin 4.2 (3.5-5.0) g/dL TSH 1.080 (0.465-4.680) mIU/L Free T4 1.40 (0.78-2.19) ng/dL Free T3 pg/mL 2.8 (2.8-5.3) pg/ml Urine Color Urine Appearance (Clear) Urine pH (5.0-8.0) Ur Specific [place] (1.001-1.035) Urine Protein (Negative) Urine Glucose (UA) (Negative) Urine Ketones (Negative) Urine Blood (Negative) Urine Nitrite (Negative) Urine Bilirubin (Negative) Urine Urobilinogen (<2.0) mg/dL Ur Leukocyte Esterase (Negative) Urine RBC (0-5) /hpf Urine WBC (0-5) /hpf Urine WBC Clumps (None) /hpf Ur Squamous Epith Cells (0-4) /hpf Amorphous Sediment (None) /hpf Urine Bacteria (None) /hpf Urine Mucus (None) /hpf - Radiology Data Radiology results: report reviewed (Computed tomography scan of the brain shows no acute process), image reviewed (Chest x-ray shows no acute process) Disposition Clinical Impression: Urinary tract infection Disposition: HOME SELF-CARE Condition: Stable Instructions (If sedation given, give patient instructions): Urinary Tract Infection in Women (ED) Additional Instructions: Please follow-up this week with Dr. Green. Return for fevers, increased weakness, confusion, worsening or change in symptoms or other concerns. Have Dr. Green check urine culture results. Prescription sent to [facility] pharmacy Prescriptions: Nitrofurantoin Monohyd/M-Cryst [Macrobid] 100 mg PO Q12HR #20 cap Is patient prescribed a controlled substance at d/c from ED?: No Referrals: Shamir Green DO [Primary Care Provider] - 1-2 days Time of Disposition: 15:03
[2020-01-26 13:33] LABS: Basophils # (A) 0.1 k/uL (0-0.2); Basophils % (A) 1 %; Eosinophils # (A) 0.1 k/uL (0-0.7); Eosinophils % (A) 2 %; HCT 45.7 % (34.0-46.0); HGB 14.6 gm/dL (11.4-16.0); Lymphocytes # (A) 1.5 k/uL (1.0-4.8); Lymphocytes % (A) 22 %; MCH 27.8 pg (25.0-35.0); MCHC 31.9 g/dL (31.0-37.0); MCV 87.1 fL (80.0-100.0); Mean Platelet Volume 7.3; Monocytes # (A) 0.4 k/uL (0-1.0); Monocytes % (A) 5 %; Neutrophils # (A) 4.8 k/uL (1.3-7.7); Neutrophils % (A) 70 %; Platelet Count 231 k/uL (150-450); RBC 5.25 m/uL (3.80-5.40); RDW 13.9 % (11.5-15.5); WBC 6.9 k/uL (3.8-10.6)
[2020-01-26 13:50] LABS: Partial Thromboplastin Time 25.5 sec (22.0-30.0)
[2020-01-26 13:53] LABS: ALT 21 U/L (4-34); AST 31 U/L (14-36); African American GFR (CKD) >90 (>60 ml/min/1.73 sqM); Albumin 4.2 g/dL (3.5-5.0); Alkaline Phosphatase 88 U/L (38-126); Anion Gap 10 mmol/L; Blood Urea Nitrogen 13 mg/dL (7-17); Calcium 8.9 mg/dL (8.4-10.2); Carbon Dioxide 23 mmol/L (22-30); Chloride 105 mmol/L (98-107); Creatine Kinase 95 U/L (30-135); Glucose 136 mg/dL (74-99); Non-African American GFR(CKD) >90 (>60 ml/min/1.73 sqM); Phosphorus 2.9 mg/dL (2.5-4.5); Potassium 4.4 mmol/L (3.5-5.1); Sodium 138 mmol/L (137-145); Total Bilirubin 0.6 mg/dL (0.2-1.3); Total Protein 7.1 g/dL (6.3-8.2)
[2020-01-26 14:00] LABS: Amorphous Sediment,Urine Rare /hpf; Bacteria,Urine Moderate /hpf; Mucus,Urine Few /hpf; RBC,Urine 4 /hpf (0-5); Squamous Epithelial Cell,Urine 4 /hpf (0-4); WBC,Urine 57 /hpf (0-5)
[2020-01-26 14:06] LABS: Color,Urine Amber
[2020-01-26 14:07] LABS: Appearance,Urine Clear (Clear); Bilirubin,Urine Negative (Negative); Blood,Urine Negative (Negative); Glucose,Urine (UA) Negative (Negative); Ketones,Urine 1+ (Negative); Nitrite,Urine Positive (Negative); Protein,Urine 1+ (Negative); Urobilinogen,Urine <2.0 mg/dL (<2.0)
[2020-01-26 14:08] LABS: Leukocyte Esterase,Urine Large (Negative)
--- NOTE | 2020-01-26 14:22 | XR ---
EXAMINATION TYPE: XR chest 2V DATE OF EXAM: 01/26/2020 COMPARISON: Chest x-ray February 19, 2018 HISTORY: Fatigue and weakness. TECHNIQUE: Frontal and lateral views of the chest are obtained. FINDINGS: There is no focal air space opacity, pleural effusion, or pneumothorax seen. The cardiac silhouette size is upper limits of normal currently. Overlying EKG leads are redemonstrated.. The o sseous structures are intact. IMPRESSION: No acute cardiopulmonary process.
--- NOTE | 2020-01-26 14:36 | CT ---
EXAMINATION TYPE: CT brain DATE OF EXAM: 01/26/2020 COMPARISON: 03/11/2013 INDICATION: Weakness. DLP: 1048.4 mGycm, Automated exposure control for dose reduction was used. CONTRAST: None CT of the brain is performed utilizing 3 mm thick sections through the posterior fossa and 3 mm thick sections through the remaining calvarium. Study is performed within 24 hours of arrival to the hosp ital. No abnormal hyperdensity is present to suggest an acute intracranial hemorrhage. No mass lesion is evident. No acute infarcts are evident. Ventricles and sulci are appropriate for the patient age. Paranasal sinuses and mastoid air cells within the [id number] are clear. IMPRESSIONS: 1. No acute intracranial process.
[2020-01-26] MEDS ORDERED: NITROFURANTOIN MONOHYD/M-CRYST 100 MG CAP PO STA (15:01)
[2020-01-26 15:27] VITALS: BP 144/77; PULSE 93
== END 2020-01-26 15:27 | disposition home or self-care (01) ==
LOC: EC 12:37
DX: N39.0 Urinary tract infection, site not specified (principal); E11.9 Type 2 diabetes mellitus without complications; F32.9 Major depressive disorder, single episode, unspecified; F41.9 Anxiety disorder, unspecified; E78.5 Hyperlipidemia, unspecified; Z79.4 Long term (current) use of insulin; Z79.899 Other long term (current) drug therapy; Z87.442 Personal history of urinary calculi; Z96.651 Presence of right artificial knee joint; Z80.1 Family history of malignant neoplasm of trachea, bronchus and lung
CPT/HCPCS: 99285; 96374; 96361 ×2; 36415; 93005; 84439; 84481; 80053; 82550; 83605; 83735; 84100; 84443; 84484; 85025; 85610; 85730; 81001; 87086; 71046; 70450; J2765; 87077; 87186

== ENCOUNTER 2020-08-12 08:51 | Emergency (ER) | payer BC ==
[2020-08-12] MEDS ORDERED: ACETAMINOPHEN TAB 325 MG TAB PO STA (09:20)
--- NOTE | 2020-08-12 09:21 | ED ---
General Adult HPI - General Chief complaint: Upper Respiratory Infection Stated complaint: nausea/headache/weak Time Seen by Provider: 08/12/20 09:00 Source: patient, RN notes reviewed Mode of arrival: ambulatory Limitations: no limitations - History of Present Illness Initial comments: This a 64-year-old female presents emergency Department chief complaint of not feeling well. Patient states she has been sick for over 10 days states that her primarily has been treated for acute sinusitis states it felt better. She states that she went to a steroid pack, antibiotic, and recently received Rocephin IM. Patient states she continues to have some nasal congestion slight cough no chest pain or shortness of breath. Patient states that she has no his tory of lung disease denies any sick contacts. She has no neck Stiffness no urinary symptoms no abdominal complaints. - Related Data Home Medications Medication Instructions Recorded Confirmed Citalopram Hydrobromide 20 mg PO DAILY 03/12/15 08/12/20 [Citalopram HBr] Liraglutide [Victoza 3-Armando] 1.8 mg SQ DAILY 03/12/15 08/12/20 Insulin Detemir [Levemir Flextouch] 50 units SQ QAM 05/23/16 08/12/20 metFORMIN HCL [Glucophage] 1,000 mg PO HS 08/01/16 08/12/20 Fluticasone Nasal [place] [Flonase 1 spr EA NOSTRIL HS 08/12/20 08/12/20 Nasal [place]] Insulin Aspart [NovoLOG Flexpen] 20 units SQ AC-TID 08/12/20 08/12/20 Levothyroxine Sodium [Synthroid] 150 mcg PO DAILY 08/12/20 08/12/20 Travoprost 1 drop RIGHT EYE HS 08/12/20 08/12/20 metFORMIN HCL [Glucophage] 500 mg PO DAILY 08/12/20 08/12/20 Allergies Allergy/AdvReac Type Severity Reaction Status Date / Time No Known Allergies Allergy Verified 08/12/20 10:14 Review of Systems ROS Statement: Those systems with pertinent positive or pertinent negative responses have been documented in the HPI. ROS Other: All systems not noted in ROS Statement are negative. Past Medical History Past Medical History: Diabetes Mellitus, Hyperlipidemia, Thyroid Disorder Additional Past Medical History / Comment(s): hx SEASONAL ALLERGIES/chronci sinusitis/deviated septum(sx), LOW THYROID., HX OF CELLULITIS LEFT CALF(mrsa 2004). mitral valve prolapse . upper dental bridge, past kidney stone, "occ heartburn". had a pne vaccine less than 5 years ago not sure of date,mortgage loan underwriter unable to verify date at time of this admit. History of Any Multi-Drug Resistant Organisms: MRSA Date of last positivie culture/infection: 08/06/2004 MDRO Source:: LEFT CALF Past Surgical History: Hysterectomy, Joint Replacement, Tonsillectomy Additional Past Surgical History / Comment(s): 2 EYE LID SURGERYS, RIGHT KNEE REPLACEMENT, MARIANA FROZEN SHOULDER MANIPULATION.colonoscopy-normal, 2014 septoplsty Past Anesthesia/Blood Transfusion Reactions: No Reported Reaction Past Psychological History: Anxiety, Depression Smoking Status: Never smoker Past Alcohol Use History: Rare Past Drug Use History: None Reported - Past Family History Mother Family Medical History: Cancer Additional Family Medical History / Comment(s): LUNG CANCER Father History Unknown: Yes Additional Family Medical History / Comment(s): from wounds sustained in house fire General Exam Limitations: no limitations General appearance: alert, in no apparent distress Head exam: Present: atraumatic, normocephalic, normal inspection Eye exam: Present: normal appearance, PERRL, EOMI. Absent: scleral icterus, conjunctival injection, periorbital swelling ENT exam: Present: normal exam, normal oropharynx, mucous membranes moist Neck exam: Present: normal inspection, full ROM. Absent: tenderness, meningismus, lymphadenopathy Respiratory exam: Present: normal lung sounds bilaterally. Absent: respiratory distress, wheezes, rales, rhonchi, stridor Cardiovascular Exam: Present: normal rhythm, tachycardia, normal heart sounds. Absent: regular rate, systolic murmur, diastolic murmur, rubs, gallop, clicks GI/Abdominal exam: Present: soft, normal bowel sounds. Absent: distended, tenderness, guarding, rebound, rigid Back exam: Absent: CVA tenderness (R), CVA tenderness (L) Neurological exam: Present: alert, oriented X3 Skin exam: Present: warm, dry, intact, normal color. Absent: rash Course Vital Signs 08/12/20 08:54 Temperature 99.7 F H Pulse Rate 105 H Respiratory 22 Rate Blood Pressure 167/84 O2 Sat by Pulse 95 Oximetry Medical Decision Making - Medical Decision Making 64-year-old presented for cough going symptoms. Patient is covid Positive x-ray shows minimal changes. Patient has no evidence of hypoxia, no respiratory distress. Patient does have mild hyperglycemia related to diabetes from taking steroids. She was given multiple doses of insulin will be discharged in stable condition return parameters were discussed. - Lab Data Result diagrams: 08/12/20 09:23 08/12/20 09:23 Lab Results 08/12/20 08/12/20 08/12/20 Range/Units 09:23 09:23 09:23 WBC 8.5 (3.8-10.6) k/uL RBC 5.17 (3.80-5.40) m/uL Hgb 14.9 (11.4-16.0) gm/dL Hct 44.3 (34.0-46.0) % MCV 85.6 (80.0-100.0) fL MCH 28.9 (25.0-35.0) pg MCHC 33.7 (31.0-37.0) g/dL RDW 13.5 (11.5-15.5) % Plt Count 203 (150-450) k/uL MPV 7.2 Neutrophils % 83 % Lymphocytes % 9 % Monocytes % 6 % Eosinophils % 0 % Basophils % 1 % Neutrophils # 7.0 (1.3-7.7) k/uL Lymphocytes # 0.8 L (1.0-4.8) k/uL Monocytes # 0.5 (0-1.0) k/uL Eosinophils # 0.0 (0-0.7) k/uL Basophils # 0.1 (0-0.2) k/uL Sodium 134 L (137-145) mmol/L Potassium 4.2 (3.5-5.1) mmol/L Chloride 99 (98-107) mmol/L Carbon Dioxide 29 (22-30) mmol/L Anion Gap 6 mmol/L BUN 15 (7-17) mg/dL Creatinine 0.64 (0.52-1.04) mg/dL Est GFR (CKD-EPI)AfAm >90 (>60 ml/min/1.73 sqM) Est GFR (CKD-EPI)NonAf >90 (>60 ml/min/1.73 sqM) Glucose 368 H (74-99) mg/dL Plasma Lactic Acid Levon 1.5 (0.7-2.0) mmol/L Calcium 8.7 (8.4-10.2) mg/dL Total Bilirubin 1.0 (0.2-1.3) mg/dL AST 20 (14-36) U/L ALT 27 (4-34) U/L Alkaline Phosphatase 94 (38-126) U/L Total Protein 6.8 (6.3-8.2) g/dL Albumin 3.7 (3.5-5.0) g/dL Coronavirus (PCR) (Not Detectd) 08/12/20 Range/Units 09:23 WBC (3.8-10.6) k/uL RBC (3.80-5.40) m/uL Hgb (11.4-16.0) gm/dL Hct (34.0-46.0) % MCV (80.0-100.0) fL MCH (25.0-35.0) pg MCHC (31.0-37.0) g/dL RDW (11.5-15.5) % Plt Count (150-450) k/uL MPV Neutrophils % % Lymphocytes % % Monocytes % % Eosinophils % % Basophils % % Neutrophils # (1.3-7.7) k/uL Lymphocytes # (1.0-4.8) k/uL Monocytes # (0-1.0) k/uL Eosinophils # (0-0.7) k/uL Basophils # (0-0.2) k/uL Sodium (137-145) mmol/L Potassium (3.5-5.1) mmol/L Chloride (98-107) mmol/L Carbon Dioxide (22-30) mmol/L Anion Gap mmol/L BUN (7-17) mg/dL Creatinine (0.52-1.04) mg/dL Est GFR (CKD-EPI)AfAm (>60 ml/min/1.73 sqM) Est GFR (CKD-EPI)NonAf (>60 ml/min/1.73 sqM) Glucose (74-99) mg/dL Plasma Lactic Acid Levon (0.7-2.0) mmol/L Calcium (8.4-10.2) mg/dL Total Bilirubin (0.2-1.3) mg/dL AST (14-36) U/L ALT (4-34) U/L Alkaline Phosphatase (38-126) U/L Total Protein (6.3-8.2) g/dL Albumin (3.5-5.0) g/dL Coronavirus (PCR) Detected A (Not Detectd) Disposition Clinical Impression: COVID-19 Disposition: HOME SELF-CARE Condition: Stable Instructions (If sedation given, give patient instructions): Upper Respiratory Infection (ED) Additional Instructions: Please return to the Emergency Department if symptoms worsen or any other concerns. Is patient prescribed a controlled substance at d/c from ED?: No Referrals: Shamir Green DO [Primary Care Provider] - 1-2 days Time of Disposition: 10:33
[2020-08-12 09:35] LABS: Basophils # (A) 0.1 k/uL (0-0.2); Basophils % (A) 1 %; Eosinophils % (A) 0 %; HCT 44.3 % (34.0-46.0); HGB 14.9 gm/dL (11.4-16.0); Lymphocytes # (A) 0.8 k/uL (1.0-4.8); Lymphocytes % (A) 9 %; MCH 28.9 pg (25.0-35.0); MCHC 33.7 g/dL (31.0-37.0); MCV 85.6 fL (80.0-100.0); Mean Platelet Volume 7.2; Monocytes # (A) 0.5 k/uL (0-1.0); Monocytes % (A) 6 %; Neutrophils % (A) 83 %; Platelet Count 203 k/uL (150-450); RBC 5.17 m/uL (3.80-5.40); RDW 13.5 % (11.5-15.5); WBC 8.5 k/uL (3.8-10.6)
--- NOTE | 2020-08-12 09:50 | XR ---
EXAMINATION TYPE: XR chest 2V DATE OF EXAM: 08/12/2020 COMPARISON: 01/26/2020 INDICATION: Cough TECHNIQUE: Frontal and lateral views of the chest are obtained. FINDINGS: The heart size is normal. The pulmonary vasculature is normal. Very minimal subsegmental infiltrate appears to be present. Consider atypical pneumonia. IMPRESSION: 1. Minimal infiltrate is present in the mid to lower lung conti otherwise unremarkable 2 view chest
[2020-08-12 10:03] LABS: ALT 27 U/L (4-34); AST 20 U/L (14-36); African American GFR (CKD) >90 (>60 ml/min/1.73 sqM); Albumin 3.7 g/dL (3.5-5.0); Alkaline Phosphatase 94 U/L (38-126); Anion Gap 6 mmol/L; Blood Urea Nitrogen 15 mg/dL (7-17); Calcium 8.7 mg/dL (8.4-10.2); Carbon Dioxide 29 mmol/L (22-30); Chloride 99 mmol/L (98-107); Glucose 368 mg/dL (74-99); Non-African American GFR(CKD) >90 (>60 ml/min/1.73 sqM); Potassium 4.2 mmol/L (3.5-5.1); Sodium 134 mmol/L (137-145); Total Protein 6.8 g/dL (6.3-8.2)
[2020-08-12] MEDS ORDERED: INSULIN ASPART (NovoLOG) 100 UNIT/ML VIAL SQ ONE (10:29)
[2020-08-12 10:58] VITALS: BP 133/68; PULSE 80; RESP 18; TEMP 99.2
== END 2020-08-12 10:57 | disposition home or self-care (01) ==
LOC: EC 08:51
DX: U07.1 COVID-19 (principal); E11.65 Type 2 diabetes mellitus with hyperglycemia; F41.9 Anxiety disorder, unspecified; F32.9 Major depressive disorder, single episode, unspecified; E78.5 Hyperlipidemia, unspecified; E03.9 Hypothyroidism, unspecified; Z79.4 Long term (current) use of insulin; Z79.899 Other long term (current) drug therapy; Z79.890 Hormone replacement therapy; Z96.651 Presence of right artificial knee joint; Z86.14 Personal history of Methicillin resistant Staphylococcus aureus infection
CPT/HCPCS: 36415; 71046; 80053; 83605; 85025; 87635; 99283

== ENCOUNTER 2020-12-09 16:47 | Emergency (ER) | payer BC ==
--- NOTE | 2020-12-09 17:08 | ED ---
General Adult HPI - General Chief complaint: Dizziness Stated complaint: Lightheaded,Dizziness Time Seen by Provider: 12/09/20 17:00 Source: patient, RN notes reviewed Mode of arrival: ambulatory Limitations: no limitations - History of Present Illness Initial comments: Patient is a pleasant [age]-year-old female presenting to the emergency department following possible unresponsive episode. Patient states she is not feeling well when out to her car. Patient sat down and does not recall happened next. Patient woke up prior to arrival. Patient believes she may been unresponsive or asleep for hours. Patient states since she woke up she is havi ng headache. Headache is only mild and frontal. Patient also feels a little bit lightheaded. Patient also feels a little bit shaky. Patient may have had similar symptoms years ago associated with thyroid problems. No chest pain or dyspnea. No confusion. No weakness. - Related Data Home Medications Medication Instructions Recorded Confirmed Citalopram Hydrobromide 20 mg PO DAILY 03/12/15 08/12/20 [Citalopram HBr] Liraglutide [Victoza 3-Armando] 1.8 mg SQ DAILY 03/12/15 08/12/20 Insulin Detemir [Levemir Flextouch] 50 units SQ QAM 05/23/16 08/12/20 metFORMIN HCL [Glucophage] 1,000 mg PO HS 08/01/16 08/12/20 Fluticasone Nasal [place] [Flonase 1 spr EA NOSTRIL HS 08/12/20 08/12/20 Nasal [place]] Insulin Aspart [NovoLOG Flexpen] 20 units SQ AC-TID 08/12/20 08/12/20 Levothyroxine Sodium [Synthroid] 150 mcg PO DAILY 08/12/20 08/12/20 Travoprost 1 drop RIGHT EYE HS 08/12/20 08/12/20 metFORMIN HCL [Glucophage] 500 mg PO DAILY 08/12/20 08/12/20 Allergies Allergy/AdvReac Type Severity Reaction Status Date / Time No Known Allergies Allergy Verified 12/09/20 16:55 Review of Systems ROS Statement: Those systems with pertinent positive or pertinent negative responses have been documented in the HPI. ROS Other: All systems not noted in ROS Statement are negative. Constitutional: Denies: fever Eyes: Denies: eye pain ENT: Denies: ear pain Respiratory: Denies: cough Cardiovascular: Denies: chest pain Endocrine: Denies: fatigue Gastrointestinal: Denies: abdominal pain, vomiting Genitourinary: Denies: dysuria Musculoskeletal: Denies: back pain Skin: Denies: rash Neurological: Reports: as per HPI. Denies: weakness, confusion Past Medical History Past Medical History: Diabetes Mellitus, Hyperlipidemia, Thyroid Disorder Additional Past Medical History / Comment(s): hx SEASONAL ALLERGIES/chronci sinusitis/deviated septum(sx), LOW THYROID., HX OF CELLULITIS LEFT CALF(mrsa 2004). mitral valve prolapse . upper dental bridge, past kidney stone, "occ heartburn". had a pne vaccine less than 5 years ago not sure of date,commercial lines underwriter unable to verify date at time of this admit. History of Any Multi-Drug Resistant Organisms: MRSA Date of last positivie culture/infection: 08/06/2004 MDRO Source:: LEFT CALF Past Surgical History: Hysterectomy, Joint Replacement, Tonsillectomy Additional Past Surgical History / Comment(s): 2 EYE LID SURGERYS, RIGHT KNEE REPLACEMENT, MARIANA FROZEN SHOULDER MANIPULATION.colonoscopy-normal, 2015 septoplsty Past Anesthesia/Blood Transfusion Reactions: No Reported Reaction Past Psychological History: Anxiety, Depression Smoking Status: Never smoker Past Alcohol Use History: Rare Past Drug Use History: None Reported - Past Family History Mother Family Medical History: Cancer Additional Family Medical History / Comment(s): LUNG CANCER Father History Unknown: Yes Additional Family Medical History / Comment(s): from wounds sustained in house fire General Exam Limitations: no limitations General appearance: alert, in no apparent distress Head exam: Present: atraumatic, normocephalic Eye exam: Present: normal appearance, PERRL, EOMI. Absent: nystagmus ENT exam: Present: normal oropharynx Neck exam: Present: normal inspection. Absent: tenderness, meningismus Respiratory exam: Present: normal lung sounds bilaterally Cardiovascular Exam: Present: regular rate, normal rhythm Expanded Peripheral pulses: 2+: Radial (R), Radial (L), Dorsalis Pedis (R), Dorsalis Pedis (L) GI/Abdominal exam: Present: soft. Absent: tenderness, pulsatile mass Extremities exam: Present: normal inspection. Absent: pedal edema, calf tenderness Neurological exam: Present: alert, oriented X3, CN II-XII intact. Absent: motor sensory deficit Expanded Neurological exam: Present: protecting the airway Patient oriented to: Present: person, place, time Speech: Present: fluid speech Cranial nerves: EOM's Intact: Normal, Facial Sensation: Normal Cerebellar function: Finger to Nose: Normal Sensory exam: Upper Extremity Light Touch: Normal, Lower Extremity Light Touch: Normal Motor strength exam: RUE: 5, LUE: 5, RLE: 5, LLE: 5 Eye Response: (4) open spontaneously Motor Response: (6) obeys commands Verbal Response: (5) oriented Psychiatric exam: Present: normal affect, normal mood Skin exam: Present: normal color Course Vital Signs 12/09/20 12/09/20 12/09/20 16:50 18:36 19:04 Temperature 97.9 F Pulse Rate 75 76 88 Respiratory 18 18 18 Rate Blood Pressure 157/90 164/86 169/88 O2 Sat by Pulse 98 98 97 Oximetry 12/09/20 19:44 Temperature 98.4 F Pulse Rate 80 Respiratory 16 Rate Blood Pressure 169/88 O2 Sat by Pulse 97 Oximetry EKG Findings - EKG Comments: EKG Findings:: No sinus rhythm with a rate of 73. [place] 160. QRS 80. QT 402. QTC 442. Left axis. Normal QRS. No acute ST change. Medical Decision Making - Medical Decision Making Patient reevaluated and resting comfortably in bed, symptom-free. Case was discussed with Dr. Green was familiar with this patient. He states patient can be discharged with close follow-up, given tomorrow if patient wishes this. If patient is not comfortable with this he can admit. Discussion is had with patient who refuses admission and would like to be discharged. Patient states she is symptom-free. Patient is agreeable to close follow-up and recommended follow-up tomorrow. - Lab Data Result diagrams: 12/09/20 17:25 12/09/20 17:25 Lab Results 12/09/20 12/09/20 12/09/20 Range/Units 17:16 17:25 17:25 WBC 9.5 (3.8-10.6) k/uL RBC 5.23 (3.80-5.40) m/uL Hgb 14.5 (11.4-16.0) gm/dL Hct 45.3 (34.0-46.0) % MCV 86.7 (80.0-100.0) fL MCH 27.7 (25.0-35.0) pg MCHC 31.9 (31.0-37.0) g/dL RDW 14.3 (11.5-15.5) % Plt Count 266 (150-450) k/uL MPV 6.8 Neutrophils % 74 % Lymphocytes % 19 % Monocytes % 4 % Eosinophils % 2 % Basophils % 1 % Neutrophils # 7.0 (1.3-7.7) k/uL Lymphocytes # 1.8 (1.0-4.8) k/uL Monocytes # 0.4 (0-1.0) k/uL Eosinophils # 0.2 (0-0.7) k/uL Basophils # 0.1 (0-0.2) k/uL PT 9.9 (9.0-12.0) sec INR 0.9 (<1.2) APTT 24.5 (22.0-30.0) sec Sodium (137-145) mmol/L Potassium (3.5-5.1) mmol/L Chloride (98-107) mmol/L Carbon Dioxide (22-30) mmol/L Anion Gap mmol/L BUN (7-17) mg/dL Creatinine (0.52-1.04) mg/dL Est GFR (CKD-EPI)AfAm (>60 ml/min/1.73 sqM) Est GFR (CKD-EPI)NonAf (>60 ml/min/1.73 sqM) Glucose (74-99) mg/dL POC Glucose (mg/dL) 74 L (75-99) mg/dL POC Glu [facility] ID Jill Noel Calcium (8.4-10.2) mg/dL Magnesium (1.6-2.3) mg/dL Total Bilirubin (0.2-1.3) mg/dL AST (14-36) U/L ALT (4-34) U/L Alkaline Phosphatase (38-126) U/L Troponin I (0.000-0.034) ng/mL Total Protein (6.3-8.2) g/dL Albumin (3.5-5.0) g/dL TSH (0.465-4.680) mIU/L Free T4 (0.78-2.19) ng/dL Free T3 pg/mL (2.8-5.3) pg/ml Urine Color Urine Appearance (Clear) Urine pH (5.0-8.0) Ur Specific [place] (1.001-1.035) Urine Protein (Negative) Urine Glucose (UA) (Negative) Urine Ketones (Negative) Urine Blood (Negative) Urine Nitrite (Negative) Urine Bilirubin (Negative) Urine Urobilinogen (<2.0) mg/dL Ur Leukocyte Esterase (Negative) Urine RBC (0-5) /hpf Urine WBC (0-5) /hpf Urine Bacteria (None) /hpf Urine Mucus (None) /hpf 12/09/20 12/09/20 12/09/20 Range/Units 17:25 17:25 17:25 WBC (3.8-10.6) k/uL RBC (3.80-5.40) m/uL Hgb (11.4-16.0) gm/dL Hct (34.0-46.0) % MCV (80.0-100.0) fL MCH (25.0-35.0) pg MCHC (31.0-37.0) g/dL RDW (11.5-15.5) % Plt Count (150-450) k/uL MPV Neutrophils % % Lymphocytes % % Monocytes % % Eosinophils % % Basophils % % Neutrophils # (1.3-7.7) k/uL Lymphocytes # (1.0-4.8) k/uL Monocytes # (0-1.0) k/uL Eosinophils # (0-0.7) k/uL Basophils # (0-0.2) k/uL PT (9.0-12.0) sec INR (<1.2) APTT (22.0-30.0) sec Sodium 141 (137-145) mmol/L Potassium 4.3 (3.5-5.1) mmol/L Chloride 104 (98-107) mmol/L Carbon Dioxide 28 (22-30) mmol/L Anion Gap 9 mmol/L BUN 15 (7-17) mg/dL Creatinine 0.66 (0.52-1.04) mg/dL Est GFR (CKD-EPI)AfAm >90 (>60 ml/min/1.73 sqM) Est GFR (CKD-EPI)NonAf >90 (>60 ml/min/1.73 sqM) Glucose 74 (74-99) mg/dL POC Glucose (mg/dL) (75-99) mg/dL POC Glu [facility] ID Calcium 9.2 (8.4-10.2) mg/dL Magnesium 1.9 (1.6-2.3) mg/dL Total Bilirubin 0.5 (0.2-1.3) mg/dL AST 25 (14-36) U/L ALT 19 (4-34) U/L Alkaline Phosphatase 95 (38-126) U/L Troponin I <0.012 (0.000-0.034) ng/mL Total Protein 7.2 (6.3-8.2) g/dL Albumin 4.1 (3.5-5.0) g/dL TSH 3.090 (0.465-4.680) mIU/L Free T4 1.12 (0.78-2.19) ng/dL Free T3 pg/mL 3.0 (2.8-5.3) pg/ml Urine Color Light Yellow Urine Appearance Clear (Clear) Urine pH 6.5 (5.0-8.0) Ur Specific [place] 1.027 (1.001-1.035) Urine Protein Negative (Negative) Urine Glucose (UA) Negative (Negative) Urine Ketones Negative (Negative) Urine Blood Negative (Negative) Urine Nitrite Positive H (Negative) Urine Bilirubin Negative (Negative) Urine Urobilinogen <2.0 (<2.0) mg/dL Ur Leukocyte Esterase Moderate H (Negative) Urine RBC 1 (0-5) /hpf Urine WBC 10 H (0-5) /hpf Urine Bacteria Rare H (None) /hpf Urine Mucus Rare H (None) /hpf - Radiology Data Radiology results: report reviewed (Computed tomography scan of the brain shows no change. Negative scan. CT angiogram head and neck reveals no acute abnormality), image reviewed (Chest x-ray shows no acute disease.) Disposition Clinical Impression: Unresponsive episode Disposition: HOME SELF-CARE Condition: Stable Instructions (If sedation given, give patient instructions): Dizziness (ED) Additional Instructions: Please follow-up with Dr. Green tomorrow. No driving until released by Dr. Green. Return for headache, weakness or confusion, difficulty walking, worsening or change in symptoms or any other concerns. Is patient prescribed a controlled substance at d/c from ED?: No Referrals: Shamir Green DO [Primary Care Provider] - 1-2 days Time of Disposition: 20:16
[2020-12-09 17:16] LABS: Glucose,Whole Blood 74 mg/dL (75-99)
[2020-12-09 17:35] LABS: Basophils # (A) 0.1 k/uL (0-0.2); Basophils % (A) 1 %; Eosinophils # (A) 0.2 k/uL (0-0.7); Eosinophils % (A) 2 %; HCT 45.3 % (34.0-46.0); HGB 14.5 gm/dL (11.4-16.0); Lymphocytes # (A) 1.8 k/uL (1.0-4.8); Lymphocytes % (A) 19 %; MCH 27.7 pg (25.0-35.0); MCHC 31.9 g/dL (31.0-37.0); MCV 86.7 fL (80.0-100.0); Mean Platelet Volume 6.8; Monocytes # (A) 0.4 k/uL (0-1.0); Monocytes % (A) 4 %; Neutrophils % (A) 74 %; Platelet Count 266 k/uL (150-450); RBC 5.23 m/uL (3.80-5.40); RDW 14.3 % (11.5-15.5); WBC 9.5 k/uL (3.8-10.6)
[2020-12-09 17:44] LABS: ALT 19 U/L (4-34); AST 25 U/L (14-36); African American GFR (CKD) >90 (>60 ml/min/1.73 sqM); Albumin 4.1 g/dL (3.5-5.0); Alkaline Phosphatase 95 U/L (38-126); Anion Gap 9 mmol/L; Blood Urea Nitrogen 15 mg/dL (7-17); Calcium 9.2 mg/dL (8.4-10.2); Carbon Dioxide 28 mmol/L (22-30); Chloride 104 mmol/L (98-107); Glucose 74 mg/dL (74-99); Magnesium 1.9 mg/dL (1.6-2.3); Non-African American GFR(CKD) >90 (>60 ml/min/1.73 sqM); Potassium 4.3 mmol/L (3.5-5.1); Sodium 141 mmol/L (137-145); Total Bilirubin 0.5 mg/dL (0.2-1.3); Total Protein 7.2 g/dL (6.3-8.2)
[2020-12-09 17:45] LABS: INR 0.9 (<1.2); Partial Thromboplastin Time 24.5 sec (22.0-30.0); Prothrombin Time 9.9 sec (9.0-12.0)
[2020-12-09 18:00] LABS: T4, Free (Free Thyroxine) 1.12 ng/dL (0.78-2.19)
--- NOTE | 2020-12-09 18:56 | XR ---
EXAMINATION TYPE: XR chest 2V DATE OF EXAM: 12/09/2020 COMPARISON: 08/12/2020 HISTORY: Syncope TECHNIQUE: FINDINGS: There is no heart failure nor confluent pneumonic infiltrate. Costophrenic angles are clear . There are chest leads. Bony thorax appears intact. IMPRESSION: No active cardiopulmonary disease. No adverse change.
--- NOTE | 2020-12-09 19:21 | CT ---
EXAMINATION TYPE: CT brain wo con DATE OF EXAM: 12/09/2020 COMPARISON: 01/26/2020 HISTORY: syncope, lightheadness, dizziness CT DLP: 1117.8 mGycm Automated exposure control for dose reduction was used. Ventricles and sulci appear normal. There is no mass effect nor midline shift. There is no sign of in tracranial hemorrhage. Calvarium is intact. The skull base is intact. IMPRESSION: Negative CT scan of the brain. No change.
--- NOTE | 2020-12-09 19:40 | CT ---
EXAMINATION TYPE: CT angio head neck DATE OF EXAM: 12/09/2020 COMPARISON: None HISTORY: syncope, lightheaded, dizziness CT DLP: 710.5 mGycm Automated exposure control for dose reduction was used. CONTRAST: Performed with IV Contrast, patient injected with 65 mL of Isovue 370. Images obtained from the aortic arch to the vertex of the brain with IV contrast. There are 3-D post processed images. There is normal branching pattern of the great vessels on the aortic arch. There is arterial flow in both subclavian arteries. There is arterial flow in the common internal and external carotid arteries bilaterally. There is arterial flow in both vertebral arteries. There is arterial flow in the anteri or middle and posterior cerebral arteries. There is no mass effect. There is no evidence of intracran ial aneurysm or neovascularity. There is normal enhancement of the venous sinuses. There is no eviden ce of intracranial arterial stenosis. There is arterial flow in the vertebrobasilar artery system. There is no evidence of carotid or verte bral artery aneurysm or dissection. There is wide patency of the carotid artery bifurcations. IMPRESSION: Normal CT angiogram of the neck. Normal CT angiogram of the brain.
[2020-12-09 19:55] LABS: Appearance,Urine Clear (Clear); Bacteria,Urine Rare /hpf; Bilirubin,Urine Negative (Negative); Blood,Urine Negative (Negative); Color,Urine Light Yellow; Glucose,Urine (UA) Negative (Negative); Ketones,Urine Negative (Negative); Leukocyte Esterase,Urine Moderate (Negative); Mucus,Urine Rare /hpf; Nitrite,Urine Positive (Negative); PH, Urine 6.5 (5.0-8.0); Protein,Urine Negative (Negative); RBC,Urine 1 /hpf (0-5); Specific Gravity,Urine 1.027 (1.001-1.035); Urobilinogen,Urine <2.0 mg/dL (<2.0); WBC,Urine 10 /hpf (0-5)
[2020-12-09 20:55] VITALS: BP 172/73; PULSE 76; RESP 14; TEMP 98.2
== END 2020-12-09 20:52 | disposition home or self-care (01) ==
LOC: EC 16:47
DX: R41.89 Other symptoms and signs involving cognitive functions and awareness (principal); R42 Dizziness and giddiness; R51.9 Headache, unspecified; E11.9 Type 2 diabetes mellitus without complications; E78.5 Hyperlipidemia, unspecified; E03.9 Hypothyroidism, unspecified; F41.9 Anxiety disorder, unspecified; F32.9 Major depressive disorder, single episode, unspecified; Z87.442 Personal history of urinary calculi; Z79.899 Other long term (current) drug therapy; Z79.4 Long term (current) use of insulin; Z79.890 Hormone replacement therapy
CPT/HCPCS: 36415; 93005; 84439; 84481; 80053; 83735; 84443; 84484; 85025; 85610; 85730; 81001; 71046; 70496; 70450; 70498; 99285; Q9967

== ENCOUNTER 2022-12-25 11:40 | Emergency (ER) | payer BC ==
[2022-12-25 11:50] VITALS: RESP 16; TEMP 98.4
[2022-12-25] MEDS ORDERED: MAG HYDROX/AL HYDROX/SIMETH 30 ML, HYOSCYAMINE ELIXIR 10 ML, LIDOCAINE 2% GLYDO JELLY 1... PO STA ×3 (12:16)
--- NOTE | 2022-12-25 12:20 | ED ---
General Adult HPI - General Chief complaint: Chest Pain Stated complaint: Chest pain, headache Time Seen by Provider: 12/25/22 12:00 Source: patient, RN notes reviewed, old records reviewed Mode of arrival: ambulatory Limitations: no limitations - History of Present Illness Initial comments: This is a 67-year-old female who presents emergency Department complaining that the last couple of days she has been extremely tired and sleeps all day and night. Patient states she's also complaining of a little headache as well as a little pain in the right ear. Patient states she's been having some burning in her chest which is been constant gets worse when she lays down but when she sits up a little better. Patient states she's had no radiation of the pain she denies the pain getting worse with any exertion. Patient denies shortness of breath difficulty breathing. Patient denies palpitations. Patient denies fever chills or cough. Patient states she has diabetes but does not have high cholesterol high blood pressure. Patient denies smoking. - Related Data Home Medications Medication Instructions Recorded Confirmed Citalopram Hydrobromide 20 mg PO DAILY 03/12/15 08/12/20 [Citalopram HBr] Liraglutide [Victoza 3-Armando] 1.8 mg SQ DAILY 03/12/15 08/12/20 Insulin Detemir [Levemir Flextouch 50 units SQ QAM 05/23/16 08/12/20 Pen] metFORMIN HCL [Glucophage] 1,000 mg PO HS 08/01/16 08/12/20 Fluticasone Nasal [place] [Flonase 1 spr EA NOSTRIL HS 08/12/20 08/12/20 Nasal [place]] Insulin Aspart [NovoLOG Flexpen] 20 units SQ AC-TID 08/12/20 08/12/20 Levothyroxine Sodium [Synthroid] 150 mcg PO DAILY 08/12/20 08/12/20 Travoprost [Travoprost 0.004%] 1 drop RIGHT EYE HS 08/12/20 08/12/20 metFORMIN HCL [Glucophage] 500 mg PO DAILY 08/12/20 08/12/20 Previous Rx's Medication Instructions Recorded Famotidine [Pepcid] 20 mg PO BID #20 tablet 12/25/22 Allergies Allergy/AdvReac Type Severity Reaction Status Date / Time No Known Allergies Allergy Verified 09/18/22 11:39 Review of Systems ROS Statement: Those systems with pertinent positive or pertinent negative responses have been documented in the HPI. ROS Other: All systems not noted in ROS Statement are negative. Past Medical History Past Medical History: Diabetes Mellitus, Hyperlipidemia, Thyroid Disorder Additional Past Medical History / Comment(s): hx SEASONAL ALLERGIES/chronci sinusitis/deviated septum(sx), LOW THYROID., HX OF CELLULITIS LEFT CALF(mrsa 2004). mitral valve prolapse . upper dental bridge, past kidney stone, "occ heartburn". had a pne vaccine less than 5 years ago not sure of date,radio news writer unable to verify date at time of this admit. History of Any Multi-Drug Resistant Organisms: MRSA Date of last positivie culture/infection: 08/06/2004 MDRO Source:: LEFT CALF Past Surgical History: Hysterectomy, Joint Replacement, Tonsillectomy Additional Past Surgical History / Comment(s): 2 EYE LID SURGERYS, RIGHT KNEE REPLACEMENT, MARIANA FROZEN SHOULDER MANIPULATION.colonoscopy-normal, 2014 septoplsty Past Anesthesia/Blood Transfusion Reactions: No Reported Reaction Past Psychological History: Anxiety, Depression Smoking Status: Never smoker Past Alcohol Use History: Rare Past Drug Use History: None Reported - Past Family History Mother Family Medical History: Cancer Additional Family Medical History / Comment(s): LUNG CANCER Father History Unknown: Yes Additional Family Medical History / Comment(s): from wounds sustained in house fire General Exam - General Exam Comments Initial Comments: GENERAL: Patient is well-developed and well-nourished. Patient is nontoxic and well- hydrated and is in mild distress. ENT: Neck is soft and supple. No significant lymphadenopathy is noted. Oropharynx is clear. Moist mucous membranes. Neck has full range of motion without eliciting any pain. EYES: The sclera were anicteric and conjunctiva were pink and moist. Extraocular movements were intact and pupils were equal round and reactive to light. Eyelids were unremarkable. PULMONARY: Unlabored respirations. Good breath sounds bilaterally. No audible rales rhonchi or wheezing was noted. CARDIOVASCULAR: There is a regular rate and rhythm without any murmurs gallops or rubs. Pain isn't reproducible. ABDOMEN: Soft and nontender with normal bowel sounds. SKIN: Skin is clear with no lesions or rashes and otherwise unremarkable. NEUROLOGIC: Patient is alert and oriented x3. Cranial nerves II through XII are grossly intact. Motor and sensory are also intact. Normal speech, volume and content. Symmetrical smile. MUSCULOSKELETAL: Normal extremities with adequate strength and full range of motion. No lower extremity swelling or edema. No calf tenderness. LYMPHATICS: No significant lymphadenopathy is noted PSYCHIATRIC: Normal psychiatric evaluation. Limitations: no limitations Course Vital Signs 12/25/22 12/25/22 11:45 12:45 Temperature 98.4 F Pulse Rate 77 73 Respiratory 16 16 Rate Blood Pressure 170/70 136/80 O2 Sat by Pulse 92 L 97 Oximetry Medical Decision Making - Medical Decision Making EKG is interpreted by myself shows a sinus rhythm at 75 bpm WV interval 161 QRSs 80 QT interval 370 QTC is 406. Patient's EKG shows no ST segment elevation or depression. Was pt. sent in by a medical professional or institution (, PA, THREADING MACHINE SETTER, urgent c are, hospital, or fdc...) When possible be specific @ -No Did you speak to anyone other than the patient for history (EMS, parent, family, police, friend...)? What history was obtained from this source @ -No Did you review nursing and triage notes (agree or disagree)? Why? @ -I reviewed and agree with nursing and triage notes Were old charts reviewed (outside hosp., previous admission, EMS record, old EKG, old radiological studies, urgent care reports/EKG's, fdc records)? Report findings @ -No old charts were reviewed Differential Diagnosis (chest pain, altered mental status, abdominal pain women, abdominal pain men, vaginal bleeding, weakness, fever, dyspnea, syncope, headache, dizziness, GI bleed, back pain, seizure, CVA, palpatations, mental health, musculoskeletal)? @ -Differential Chest Pain: Stable Angina, Unstable Angina, STEMI, NSTEMI Aortic Dissection, Pneumothorax, Musculoskeletal, Esophageal Spasm GERD, Cholecystitis, Pancreatitis, Zoster, this is not meant to be an all-inclusive list. EKG interpreted by me (3pts min.). @ -As above X-rays interpreted by me (1pt min.). @ -Chest x-ray was interpreted by myself I see no acute abnormality. CT interpreted by me (1pt min.). @ -None done U/S interpreted by me (1pt. min.). @ -None done What testing was considered but not performed or refused? (CT, X-rays, U/S, labs)? Why? @ -None What meds were considered but not given or refused? Why? @ -None Did you discuss the management of the patient with other professionals (professionals i.e. , PA, THREADING MACHINE SETTER, lab, RT, psych nurse, social work lecturer, bargain table clerk, teacher, policy officer, case management coordinator)? Give summary @ -No Was smoking cessation discussed for >3mins.? @ -No Was critical care preformed (if so, how long)? @ -No Were there social determinants of health that impacted care today? How? (Homelessness, low income, unemployed, alcoholism, drug addiction, transportation, low edu. Level, literacy, decrease access to med. care, nursing home, rehab)? @ -No Was there de-escalation of care discussed even if they declined (Discuss DNR or withdrawal of care, Hospice)? DNR status @ -No What co-morbidities impacted this encounter? (DM, HTN, Smoking, COPD, CAD, Cancer, CVA, ARF, Chemo, Hep., AIDS, mental health diagnosis, sleep apnea, morbid obesity)? @ -None Was patient admitted / discharged? Hospital course, mention meds given and route, prescriptions, significant lab abnormalities, going to OR and other pertinent info. @ -Patient's laboratory came back and showed no abnormalities. Patient did get a GI cocktail and she stated made her feel considerably better. Patient was adamant that this was not cardiac chest pain she states it felt more like heartburn. Patient denied any difficulty breathing. Patient was feeling better at this time she will follow-up with her primary medical care doctor. Patient states he symptoms all started when she increased her Synthroid. Undiagnosed new problem with uncertain prognosis? @ -No Drug Therapy requiring intensive monitoring for toxicity (Heparin, Nitro, Insulin, Cardizem)? @ -No Were any procedures done? @ -No Diagnosis/symptom? @ -Gastroesophageal reflux Acute, or Chronic, or Acute on Chronic? @ -Acute Uncomplicated (without systemic symptoms) or Complicated (systemic symptoms)? @ -Complicated Side effects of treatment? @ -No Exacerbation, Progression, or Severe Exacerbation? @ -No Poses a threat to life or bodily function? How? (Chest pain, [place], [place], pneumonia, PE, COPD, DKA, ARF, appy, cholecystitis, CVA, Diverticulitis, Homicidal, Suicidal, threat to staff... and all critical care pts) @ -No Diagnosis/symptom? @ -Atypical chest pain Acute, or Chronic, or Acute on Chronic? @ -Acute Uncomplicated (without systemic symptoms) or Complicated (systemic symptoms)? @ -Complicated Side effects of treatment? @ -none Exacerbation, Progression, or Severe Exacerbation] @ -no Poses a threat to life or bodily function? @ -no - Lab Data Result diagrams: 12/25/22 12:45 12/25/22 12:45 Lab Results 12/25/22 12/25/22 12/25/22 Range/Units 12:45 12:45 12:45 WBC 6.1 (3.8-10.6) k/uL RBC 5.08 (3.80-5.40) m/uL Hgb 14.6 (11.4-16.0) gm/dL Hct 45.2 (34.0-46.0) % MCV 89.0 (80.0-100.0) fL MCH 28.7 (25.0-35.0) pg MCHC 32.3 (31.0-37.0) g/dL RDW 13.6 (11.5-15.5) % Plt Count 231 (150-450) k/uL MPV 7.8 Neutrophils % 71 % Lymphocytes % 21 % Monocytes % 5 % Eosinophils % 2 % Basophils % 0 % Neutrophils # 4.3 (1.3-7.7) k/uL Lymphocytes # 1.3 (1.0-4.8) k/uL Monocytes # 0.3 (0-1.0) k/uL Eosinophils # 0.1 (0-0.7) k/uL Basophils # 0.0 (0-0.2) k/uL PT 10.3 (9.0-12.0) sec INR 1.0 (<1.2) APTT 23.1 (22.0-30.0) sec Sodium 139 (137-145) mmol/L Potassium 4.1 (3.5-5.1) mmol/L Chloride 106 (98-107) mmol/L Carbon Dioxide 24 (22-30) mmol/L Anion Gap 9 mmol/L BUN 14 (7-17) mg/dL Creatinine 0.61 (0.52-1.04) mg/dL Est GFR (CKD-EPI)AfAm >90 (>60 ml/min/1.73 sqM) Est GFR (CKD-EPI)NonAf >90 (>60 ml/min/1.73 sqM) Glucose 152 H (74-99) mg/dL Calcium 8.6 (8.4-10.2) mg/dL Magnesium 1.9 (1.6-2.3) mg/dL Total Bilirubin 0.6 (0.2-1.3) mg/dL AST 24 (14-36) U/L ALT 23 (4-34) U/L Alkaline Phosphatase 92 (38-126) U/L Troponin I (0.000-0.034) ng/mL Total Protein 6.4 (6.3-8.2) g/dL Albumin 3.6 (3.5-5.0) g/dL Amylase 44 (30-110) U/L Lipase 131 (23-300) U/L TSH 0.123 L (0.465-4.680) mIU/L 12/25/22 Range/Units 12:45 WBC (3.8-10.6) k/uL RBC (3.80-5.40) m/uL Hgb (11.4-16.0) gm/dL Hct (34.0-46.0) % MCV (80.0-100.0) fL MCH (25.0-35.0) pg MCHC (31.0-37.0) g/dL RDW (11.5-15.5) % Plt Count (150-450) k/uL MPV Neutrophils % % Lymphocytes % % Monocytes % % Eosinophils % % Basophils % % Neutrophils # (1.3-7.7) k/uL Lymphocytes # (1.0-4.8) k/uL Monocytes # (0-1.0) k/uL Eosinophils # (0-0.7) k/uL Basophils # (0-0.2) k/uL PT (9.0-12.0) sec INR (<1.2) APTT (22.0-30.0) sec Sodium (137-145) mmol/L Potassium (3.5-5.1) mmol/L Chloride (98-107) mmol/L Carbon Dioxide (22-30) mmol/L Anion Gap mmol/L BUN (7-17) mg/dL Creatinine (0.52-1.04) mg/dL Est GFR (CKD-EPI)AfAm (>60 ml/min/1.73 sqM) Est GFR (CKD-EPI)NonAf (>60 ml/min/1.73 sqM) Glucose (74-99) mg/dL Calcium (8.4-10.2) mg/dL Magnesium (1.6-2.3) mg/dL Total Bilirubin (0.2-1.3) mg/dL AST (14-36) U/L ALT (4-34) U/L Alkaline Phosphatase (38-126) U/L Troponin I <0.012 (0.000-0.034) ng/mL Total Protein (6.3-8.2) g/dL Albumin (3.5-5.0) g/dL Amylase (30-110) U/L Lipase (23-300) U/L TSH (0.465-4.680) mIU/L Disposition Clinical Impression: Gastroesophageal reflux disease, Atypical chest pain Disposition: HOME SELF-CARE Instructions (If sedation given, give patient instructions): Chest Pain (ED), GERD (Gastroesophageal Reflux Disease) (ED) Prescriptions: Famotidine [Pepcid] 20 mg PO BID #20 tablet Is patient prescribed a controlled substance at d/c from ED?: No Referrals: Shamir Green DO [Primary Care Provider] - 1-2 days Time of Disposition: 13:55
[2022-12-25 12:51] LABS: Basophils % (A) 0 %; Eosinophils # (A) 0.1 k/uL (0-0.7); Eosinophils % (A) 2 %; HCT 45.2 % (34.0-46.0); HGB 14.6 gm/dL (11.4-16.0); Lymphocytes # (A) 1.3 k/uL (1.0-4.8); Lymphocytes % (A) 21 %; MCH 28.7 pg (25.0-35.0); MCHC 32.3 g/dL (31.0-37.0); Mean Platelet Volume 7.8; Monocytes # (A) 0.3 k/uL (0-1.0); Monocytes % (A) 5 %; Neutrophils # (A) 4.3 k/uL (1.3-7.7); Neutrophils % (A) 71 %; Platelet Count 231 k/uL (150-450); RBC 5.08 m/uL (3.80-5.40); RDW 13.6 % (11.5-15.5); WBC 6.1 k/uL (3.8-10.6)
[2022-12-25 13:02] LABS: Partial Thromboplastin Time 23.1 sec (22.0-30.0); Prothrombin Time 10.3 sec (9.0-12.0)
[2022-12-25 13:04] LABS: ALT 23 U/L (4-34); AST 24 U/L (14-36); African American GFR (CKD) >90 (>60 ml/min/1.73 sqM); Albumin 3.6 g/dL (3.5-5.0); Alkaline Phosphatase 92 U/L (38-126); Amylase 44 U/L (30-110); Anion Gap 9 mmol/L; Blood Urea Nitrogen 14 mg/dL (7-17); Calcium 8.6 mg/dL (8.4-10.2); Carbon Dioxide 24 mmol/L (22-30); Chloride 106 mmol/L (98-107); Glucose 152 mg/dL (74-99); Lipase 131 U/L (23-300); Magnesium 1.9 mg/dL (1.6-2.3); Non-African American GFR(CKD) >90 (>60 ml/min/1.73 sqM); Potassium 4.1 mmol/L (3.5-5.1); Sodium 139 mmol/L (137-145); Total Bilirubin 0.6 mg/dL (0.2-1.3); Total Protein 6.4 g/dL (6.3-8.2)
--- NOTE | 2022-12-25 13:19 | XR ---
EXAMINATION TYPE: XR chest 2V DATE OF EXAM: 12/25/2022 COMPARISON: 12/09/2020 HISTORY: 67-year-old female with chest pain TECHNIQUE: PA and lateral views FINDINGS: Heart normal size. Aorta and pulmonary vasculature within normal limits. No consolidation or pleural effusion. IMPRESSION: No acute cardiopulmonary process.
[2022-12-25 14:13] VITALS: BP 152/74; PULSE 70
[2022-12-25 14:35] LABS: T4, Free (Free Thyroxine) 1.51 ng/dL (0.78-2.19)
== END 2022-12-25 14:22 | disposition home or self-care (01) ==
LOC: EC 11:40
DX: K21.9 Gastro-esophageal reflux disease without esophagitis (principal); E11.9 Type 2 diabetes mellitus without complications; E07.9 Disorder of thyroid, unspecified; F41.9 Anxiety disorder, unspecified; F32.A Depression, unspecified; Z79.890 Hormone replacement therapy; Z79.899 Other long term (current) drug therapy; Z79.84 Long term (current) use of oral hypoglycemic drugs; Z79.4 Long term (current) use of insulin
CPT/HCPCS: 36415; 71046; 80053; 82150; 83690; 83735; 84439; 84443; 84484; 85025; 85610; 85730; 93005; 99285